=== PATIENT | female | born 1950 | race Hispanic/Latino ===

== ENCOUNTER 2018-06-18 11:23 | Emergency (ER) | payer MEDICARE, OTHER ==
[2018-06-18 11:23] VITALS: BMI 24.2
--- NOTE | 2018-06-18 12:22 | C.PDOC ---
History Of Present Illness 67 y/o female, with history of high cholesterol, comes in complaining of cough for the past 3 weeks. Patient reports taking medications but with no relief and has difficulty swallowing. Also complains of a headache and diarrhea but no vomiting, dizziness, chest pain, congestion, or other symptoms. Time Seen by Provider: 06/18/18 11:48 Chief Complaint (Nursing): Chest Pain History Per: Patient History/Exam Limitations: no limitations Onset/Duration Of Symptoms: Days Current Symptoms Are (Timing): Still Present Past Medical History Reviewed: Historical Data, Nursing Documentation, Vital Signs Vital Signs: Last Vital Signs Temp 98.9 F 06/18/18 11:30 Pulse 95 H 06/18/18 11:30 Resp 20 06/18/18 11:30 BP 136/84 06/18/18 11:30 Pulse Ox 99 06/18/18 11:30 - Medical History PMH: Anxiety, Back Problems, Depression, Gastritis, Hypercholesterolemia Denies: Diabetes, Hepatitis, HIV, HTN, Seizures, Sexually Transmitted Disease Surgical History: Cholecystectomy - [facility] GROUP PSYCHOTHERAPY (01/14/16) Family History: States: No Known Family Hx - Social History Hx Alcohol Use: No Hx Substance Use: Yes - Immunization History Hx Tetanus Toxoid Vaccination: No Hx Influenza Vaccination: No Hx Pneumococcal Vaccination: No Review Of Systems Except As Marked, All Systems Reviewed And Found Negative. Constitutional: Negative for: Fever, Chills ENT: Negative for: Nose Congestion Cardiovascular: Negative for: Chest Pain Respiratory: Positive for: Cough. Negative for: Shortness of Breath Gastrointestinal: Positive for: Diarrhea. Negative for: Vomiting Neurological: Positive for: Headache. Negative for: Dizziness Physical Exam - Physical Exam Appears: Non-toxic, No Acute Distress Skin: Warm, Dry Head: Atraumatic, Normacephalic Eye(s): bilateral: Normal Inspection Ear(s): Bilateral: Normal Oral Mucosa: Moist Throat: Normal, No Erythema, No Exudate Neck: Supple Cardiovascular: Rhythm Regular, No Murmur Respiratory: Normal Breath Sounds, No Rales, No Rhonchi, No Wheezing Gastrointestinal/Abdominal: Soft, No Tenderness Extremity: Bilateral: Atraumatic, Normal Color And Temperature, Normal ROM Neurological/Psych: Oriented x3, Normal Speech ED Course And Treatment - Laboratory Results Result Diagrams: 06/18/18 13:15 06/18/18 13:15 O2 Sat by Pulse Oximetry: 99 (RA) Pulse Ox Interpretation: Normal Medical Decision Making Medical Decision Making: Plan: --Labs --Chest XR --Flu swab --UA Disposition - Disposition Referrals: Shaik Gupta MD [Staff Provider] - Disposition: HOME/ ROUTINE Disposition Time: 14:30 Condition: STABLE Additional Instructions: Follow up with the medical doctor within 1-2 days. Return if worsened. Prescriptions: Azithromycin [Zithromax] 250 mg PO DAILY #4 tab Benzonatate 200 mg PO TID PRN #30 capsule PRN Reason: Cough predniSONE [Prednisone] 20 mg PO BID #10 tab Instructions: Acute Bronchitis Forms: [employer] ([place]) - Clinical Impression Clinical Impression: Bronchitis - PA / BUSINESS DEVELOPMENT PROFESSIONAL / Resident Statement MD/DO has reviewed & agrees with the documentation as recorded. - Scribe Statement The provider has reviewed the documentation as recorded by the Scribe Juliann Wisdom All medical record entries made by the Scribe were at my direction and perso mendoza dictated by me. I have reviewed the chart and agree that the record accurately reflects my personal performance of the history, physical exam, medical decision making, and the department course for this patient. I have also personally directed, reviewed, and agree with the discharge instructions and disposition.
--- NOTE | 2018-06-18 12:24 | C.PDOC ---
Time Seen by Provider: 06/18/18 11:48 Chief Complaint (Nursing): Chest Pain Past Medical History Vital Signs: Last Vital Signs Temp 98.9 F 06/18/18 11:30 Pulse 95 H 06/18/18 11:30 Resp 20 06/18/18 11:30 BP 136/84 06/18/18 11:30 Pulse Ox 99 06/18/18 11:30 - Medical History PMH: Anxiety, Back Problems, Depression, Gastritis, Hypercholesterolemia Denies: Diabetes, Hepatitis, HIV, HTN, Seizures, Sexually Transmitted Disease Surgical History: Cholecystectomy - [facility] Procedures GROUP PSYCHOTHERAPY (01/14/16) Family History: States: Unknown Family Hx - Social History Hx Alcohol Use: No Hx Substance Use: Yes - Immunization History Hx Tetanus Toxoid Vaccination: No Hx Influenza Vaccination: No Hx Pneumococcal Vaccination: No ED Course And Treatment O2 Sat by Pulse Oximetry: 99 Disposition - Disposition
[2018-06-18 13:25] LABS: BASO % 0.7 % (0.0-2.0); EOS # 0.2 K/uL (0.0-0.7); HEMOGLOBIN 12.7 g/dL (11.0-16.0); LYMPH % 16.7 % (20.0-40.0); MEAN CORPUSCULAR HEMOGLOBIN 32.5 pg (27.0-31.0); MEAN CORPUSCULAR HGB CONC 33.8 g/dL (33.0-37.0); MEAN PLATELET VOLUME 7.8 fL (7.2-11.7); MONO # 0.6 K/uL (0.0-0.8); MONO % 9.1 % (0.0-10.0); NEUT # 4.2 K/uL (1.8-7.0); NEUT % 69.5 % (50.0-75.0); RBC 3.91 Mil/uL (3.80-5.20); RED CELL DISTRIBUTION WIDTH 14.1 % (11.5-14.5); WHITE BLOOD COUNT 6.1 K/uL (4.8-10.8)
[2018-06-18 13:51] LABS: ALBUMIN 4.3 g/dL (3.5-5.0); ALT/SGPT 22 U/L (9-52); AST/SGOT 23 U/L (14-36); BLOOD UREA NITROGEN 5 mg/dL (7-17); CALCIUM 9.6 mg/dl (8.6-10.4); GFR NON-AFRICAN AMERICAN > 60
[2018-06-18 13:57] VITALS: RESP 18
--- NOTE | 2018-06-18 14:13 | RAD ---
Date of service: 06/18/2018 HISTORY: SOB COMPARISON: 08/26/2015 TECHNIQUE: Chest PA and lateral FINDINGS: LUNGS: No consolidation noted. Lung volumes slightly increased. A vague 6 to 7 mm low-density nodular opacity is question in the right upper lobe projecting also over the anterior right 2nd rib. This is not seen as such on the prior study. There is also equivocal faint low-density nodular opacity projecting over the medial inferior right clavicle not appreciated such on the prior study. Significance of these findings/appearances is unknown. No less pulmonary neoplastic nodules are the clinical entities to consider Punctate possible 1 to 2 mm scattered calcified granulomas on the lateral view are suspect. PLEURA: No significant pleural effusion identified. No pneumothorax apparent. A minimal biapical pleural thickening possible. CARDIOVASCULAR: No aortic atherosclerotic calcification present. Normal cardiac size. No pulmonary vascular congestion. OSSEOUS STRUCTURES: No significant abnormalities. VISUALIZED UPPER ABDOMEN: Normal. OTHER FINDINGS: None. IMPRESSION: Equivocal low-density nodular opacities right upper lung zone also projecting over the right anterior 2nd rib of unclear clinical significance. Additional findings as noted above. As these findings appearances are not seen with certainty on the available prior study, consider noncontrast CT chest to further evaluate. No pulmonary infiltrate or atelectasis, pleural effusion or pneumothorax seen. Other findings as above. Comments: Study marked for PA review .
[2018-06-18 14:53] VITALS: BP 151/78; PULSE 62; TEMP 98.8; O2SAT 98
--- NOTE | 2018-06-19 19:15 | CARD ---
APPROVED REPORT Date of service: 06/18/2018 EKG Measurement Heart [id number] <Conclusion> Normal sinus rhythm Normal ECG
== END 2018-06-18 14:52 | disposition home or self-care (01) ==
LOC: C.ER 11:23
DX: J40 Bronchitis, not specified as acute or chronic (principal); E78.00 Pure hypercholesterolemia, unspecified

== ENCOUNTER 2018-06-25 11:45 | Inpatient (IN) | payer MEDICARE, OTHER ==
[2018-06-25 11:45] VITALS: BMI 24.2
--- NOTE | 2018-06-25 13:00 | C.PDOC ---
History Of Present Illness 67 y/o female with a PMHx of asthma and anxiety presents to the ED for complaints of worsening SOB and cough for the past 2 weeks. She was seen here on 06/18 and diagnosed with bronchitis, discharged home with Zithromax, cough medicine, and prednisone. States she took medications but has not felt better at all. Patient then went to see her PMD who prescribed Avelox. She is still taking the Avelox but reports every day she feels worse than the day before. On arrival, patient appears to be hyperventilating. She denies any chest pain, nausea, vomiting, weakness, numbness, or leg pain or swelling. Time Seen by Provider: 06/25/18 12:33 Chief Complaint (Nursing): Shortness Of Breath History Per: Patient History/Exam Limitations: no limitations Onset/Duration Of Symptoms: Days Current Symptoms Are (Timing): Worse Initiating Event: Upper Respiratory Illness Exacerbating Factor(s): Coughing Past Medical History Reviewed: Historical Data, Nursing Documentation, Vital Signs Vital Signs: Last Vital Signs Temp 98.2 F 06/25/18 11:49 Pulse 92 H 06/25/18 11:49 Resp 20 06/25/18 11:49 BP 170/91 H 06/25/18 11:49 Pulse Ox 99 06/25/18 11:49 - Medical History PMH: Anxiety, Back Problems, Depression, Gastritis, Hypercholesterolemia Denies: Diabetes, Hepatitis, HIV, HTN, Seizures, Sexually Transmitted Disease Surgical History: Cholecystectomy - [facility] Procedures GROUP PSYCHOTHERAPY (01/14/16) Family History: States: No Known Family Hx - Social History Hx Alcohol Use: No Hx Substance Use: Yes - Immunization History Hx Tetanus Toxoid Vaccination: No Hx Influenza Vaccination: No Hx Pneumococcal Vaccination: No Review Of Systems Except As Marked, All Systems Reviewed And Found Negative. Constitutional: Negative for: Fever, Chills Eyes: Negative for: Vision Change Cardiovascular: Negative for: Chest Pain, Palpitations Respiratory: Positive for: Cough, Shortness of Breath Gastrointestinal: Negative for: Nausea, Vomiting, Diarrhea Musculoskeletal: Negative for: Back Pain Neurological: Negative for: Weakness, Numbness, Dizziness Psych: Positive for: Anxiety Physical Exam - Physical Exam Appears: Non-toxic, No Acute Distress, Other (Appears very anxious) Skin: Warm, Dry Head: Atraumatic, Normacephalic Eye(s): bilateral: Normal Inspection, PERRL, EOMI Oral Mucosa: Moist Neck: Normal ROM Chest: Symmetrical, No Tenderness Cardiovascular: Rhythm Regular, No Murmur Respiratory: No Rales, No Rhonchi, No Wheezing, Other (Hyperventilating) Gastrointestinal/Abdominal: Soft, No Tenderness, No Distention Extremity: Bilateral: Atraumatic, Normal Color And Temperature (with no cyanosis or edema), Normal ROM Pulses: Left Dorsalis Pedis: Normal, Right Dorsalis Pedis: Normal Neurological/Psych: Oriented x3 ED Course And Treatment - Laboratory Results Result Diagrams: 06/25/18 13:47 06/25/18 13:47 ECG: Interpreted By Me, Viewed By Me ECG Rhythm: Sinus Bradycardia Rate From EC O2 Sat by Pulse Oximetry: 99 (RA) Pulse Ox Interpretation: Normal - CT Scan/US CTA Chest Other Rad Studies (CT/US): Read By Radiologist, Radiology Report Reviewed CT/US Interpretation: Accession No. : [id number]. Patient Name / ID : JOE DOS SANTOS / [id number]. Exam Date : 06/25/2018 15:49:43 ( Approved ). Study Comment : Sex / Age : F / 67Y. Creator : Angela Ramos. Dictator : Keesha Salmon MD. Medical Device Sales : Real Time Analyst : Keesha Salmon MD. Approver2 : Report Date : 06/25/2018 16:11:44. My Comment : . Date of service: 06/25/2018. CTA chest PE protocol. Indication: SOB, abnormal CXR. Technique: Contiguous axial images were obtained through the chest with intravenous contrast enhancement. Sagittal and coronal reconstructions were generated and reviewed. This CT exam was performed using 1 or more of the following dose reduction techniques: Automated exposure control, adjustment of the MAA and/or kV according to patient size, and/or use of iterative reconstruction technique. IV contrast: 100 mL Visipaque 320 IV. . Radiation dose (DLP): 427.11 MGy-cm. Comparison: Chest x-ray performed 06/18/18. Findings: Visualized portions of the inferior thyroid gland appear unremarkable. The mediastinal and hilar vascular structures appear within normal limits. The heart appears within normal limits of size. Atherosclerotic calcifications. No large central or segmental pulmonary embolus evident. No focal consolidation. No pleural effusion. No pneumothorax. No suspicious pulmonary nodules measuring greater than 5 mm. Small hiatal hernia. Limited visualized portions of the upper abdomen: Cholecystectomy clips. Degenerative changes. Osseous demineralization. Impression: No large central or segmental pulmonary embolus identified. Progress Note: Blood work and urine sent to the lab. EKG ordered. Prior records and imaging reviewed. Prior CXR did show a possible lung mass. Will order CTA Chest to r/o malignancy vs PE. Imaging reviewed, no PE or infiltrates. No suspicious pulmonary nodules measuring greater than 5 mm. Counseled patient regarding all results. 17:20 Still pending EKG. EKG reviewed, no acute changes. 18:00 On reassessment, patient is refusing to go home, stating "I know something is wrong with me, I'm dying." She complains of persistent SOB and difficulty breathing. Will administer duoneb x 1 and reassess. - Physician Consult Information Time Consulting Physician Contacted: 18:27 Physician Contacted: Geoff Reyes Outcome Of Conversation: accepts patient for observation to tele Disposition Counseled Patient/Family Regarding: Studies Performed - Disposition Disposition: HOSPITALIZED Disposition Time: 18:27 Condition: FAIR Forms: [facility] ([place]) - Clinical Impression Clinical Impression: Dyspnea - PA / RADIO TELEVISION ANNOUNCER / Resident Statement MD/DO has reviewed & agrees with the documentation as recorded. - Scribe Statement The provider has reviewed the documentation as recorded by the Amee Evans All medical record entries made by the Amee were at my direction and personally dictated by me. I have reviewed the chart and agree that the record accurately reflects my personal performance of the history, physical exam, medical decision making, and the department course for this patient. I have also personally directed, reviewed, and agree with the discharge instructions and disposition. Decision To Admit - Pt Status Changed To: Hospital Disposition Of: Observation - . Bed Request Type: Telemetry Admitting Physician: Geoff Reyes Patient Diagnosis: Dyspnea
[2018-06-25 13:57] LABS: BASO % 0.1 % (0.0-2.0); EOS % 0.1 % (0.0-4.0); HEMOGLOBIN 13.9 g/dL (11.0-16.0); MEAN CELL VOLUME 95.6 fL (81.0-99.0); MEAN CORPUSCULAR HEMOGLOBIN 31.3 pg (27.0-31.0); MEAN CORPUSCULAR HGB CONC 32.7 g/dL (33.0-37.0); MEAN PLATELET VOLUME 7.8 fL (7.2-11.7); MONO # 0.8 K/uL (0.0-0.8); MONO % 6.2 % (0.0-10.0); NEUT # 11.1 K/uL (1.8-7.0); NEUT % 85.6 % (50.0-75.0); RBC 4.44 Mil/uL (3.80-5.20); RED CELL DISTRIBUTION WIDTH 14.1 % (11.5-14.5)
[2018-06-25 14:02] LABS: URINE BACTERIA RARE (<OCC); URINE BILIRUBIN NEGATIVE (NEGATIVE); URINE BLOOD NEGATIVE (NEGATIVE); URINE CLARITY Clear (Clear); URINE COLOR Straw (YELLOW); URINE GLUCOSE (UA) NORMAL (Normal); URINE LEUKOCYTE ESTERASE NEG Leu/uL (Negative); URINE PROTEIN NEGATIVE (NEGATIVE); URINE UROBILINOGEN NORMAL mg/dL (0.2-1.0)
[2018-06-25 14:06] LABS: PLATELET COUNT 340 K/uL (130-400)
[2018-06-25 14:07] LABS: ALB/GLOB RATIO 1.7 (1.0-2.1); ALBUMIN 4.7 g/dL (3.5-5.0); ALT/SGPT 40 U/L (9-52); AST/SGOT 40 U/L (14-36); BLOOD UREA NITROGEN 15 mg/dL (7-17); CALCIUM 10.2 mg/dl (8.6-10.4); GFR NON-AFRICAN AMERICAN > 60
[2018-06-25 14:08] LABS: PROTHROMBIN TIME 11.2 SECONDS (9.7-12.2)
[2018-06-25 14:17] LABS: B-TYPE NATRIURETIC PEPTIDE 133 pg/mL (0-900); CK-MB 1.76 ng/mL (0.0-3.38)
[2018-06-25 15:18] LABS: BANDS 1 % (0-2); LYMPHOCYTE 9 % (20-40); MONOCYTE 3 % (0-10); NEUTROPHIL 87 % (50-75); PLATELET ESTIMATE NORMAL (NORMAL); TOTAL CELLS COUNTED 100
[2018-06-25] MEDS ORDERED: Iodixanol 320 MG/ML 100 ML BOTTLE IV ONE ×2 (15:26→15:59)
--- NOTE | 2018-06-25 16:46 | CT ---
Date of service: 06/25/2018 CTA chest PE protocol Indication: SOB, abnormal CXR Technique: Contiguous axial images were obtained through the chest with intravenous contrast enhancement. Sagittal and coronal reconstructions were generated and reviewed. This CT exam was performed using 1 or more of the following dose reduction techniques: Automated exposure control, adjustment of the MAA and/or kV according to patient size, and/or use of iterative reconstruction technique. IV contrast: 100 mL Visipaque 320 IV Radiation dose (DLP): 427.11 MGy-cm. Comparison: Chest x-ray performed 06/18/18 Findings: Visualized portions of the inferior thyroid gland appear unremarkable. The mediastinal and hilar vascular structures appear within normal limits. The heart appears within normal limits of size. Atherosclerotic calcifications. No large central or segmental pulmonary embolus evident. No focal consolidation. No pleural effusion. No pneumothorax. No suspicious pulmonary nodules measuring greater than 5 mm. Small hiatal hernia. Limited visualized portions of the upper abdomen: Cholecystectomy clips. Degenerative changes. Osseous demineralization. Impression: No large central or segmental pulmonary embolus identified.
[2018-06-25] MEDS ORDERED: Albuterol-Ipratrop 3 mg / 0.5 (3 ml) UD IH STA (18:17)
[2018-06-25] MEDS ORDERED: Albuterol-Ipratrop 3 mg / 0.5 (3 ml) UD ONE (18:26)
[2018-06-25] MEDS ORDERED: Albuterol-Ipratrop 3 mg / 0.5 (3 ml) UD INH PRN (21:07)
[2018-06-25] MEDS: MethylPREDNISolone 40 mg Vial IVP SCH (21:27)
[2018-06-25] MEDS: Azithromycin 500 MG in Sodium Chloride 0.9% 250 ML IVPB SCH (21:33)
[2018-06-25] MEDS: Tramadol 25 mg PO PRN (22:16)
[2018-06-26] MEDS: MethylPREDNISolone 40 mg Vial IVP SCH ×3 (05:46→22:09)
[2018-06-26] MEDS: Pantoprazole 20 mg EC Tab PO SCH (09:11)
[2018-06-26] MEDS: Enoxaparin 40 mg Syringe SC SCH (09:11)
[2018-06-26] MEDS: Azithromycin 500 MG in Sodium Chloride 0.9% 250 ML IVPB SCH (09:20)
[2018-06-26] MEDS: Tramadol 25 mg PO PRN (10:21)
--- NOTE | 2018-06-26 11:04 | CP.PCM.CON ---
History of Present Illness - History of Present Illness History of Present Illness: Reason for consultation: Shortness of breath 67-year-old female with history of asthma, anxiety/depression presented to emergency room with worsening shortness of breath and cough for the past 2 weeks. She was recently admitted and treated for bronchitis and was discharged home on prednisone and Zithromax which she took it but did not get better. CT angios showed no pulmonary embolism, pneumonia or lung nodule. Patient also complaining of diarrhea after she was started on antibiotics. Review of Systems - Review of Systems All systems: reviewed and no additional remarkable complaints except (Shortness of breath cough and diarrhea) Past Patient History - Infectious Disease Hx of Infectious Diseases: None - Past Medical History & Family History Past Medical History?: Yes - Past Social History Smoking Status: Light Smoker < 10 Cigarettes Daily - CARDIAC Hx Hypercholesterolemia: Yes Hx Hypertension: No - PULMONARY Hx Tuberculosis: No - NEUROLOGICAL Hx Seizures: No - HEMATOLOGICAL/ONCOLOGICAL Hx Human Immunodeficiency Virus (HIV): No - MUSCULOSKELETAL/RHEUMATOLOGICAL Hx Musculoskeletal Disorders: Yes - GASTROINTESTINAL Hx Gastritis: Yes - GENITOURINARY/GYNECOLOGICAL Hx Sexually Transmitted Disorders: No - PSYCHIATRIC Hx Anxiety: Yes Hx Depression: Yes Hx Substance Use: Yes - SURGICAL HISTORY Hx Cholecystectomy: Yes - ANESTHESIA Hx Anesthesia: Yes Hx Anesthesia Reactions: No Meds Allergies/Adverse Reactions: Allergies Allergy/AdvReac Type Severity Reaction Status Date / Time No Known Allergies Allergy Verified 06/25/18 11:50 - Medications Medications: Current Medications Albuterol/Ipratropium (Duoneb 3 Mg/0.5 Mg (3 Ml) Ud) 3 ml INH RQ6 PRN PRN Reason: dyspnea Clonazepam (Klonopin) 0.5 mg PO [facility] Cyanocobalamin (Vitamin B12 1000 Mcg Tab) 1,000 mcg PO DAILY [facility] Last Admin: 06/26/18 09:03 Dose: 1,000 mcg Enoxaparin Sodium (Lovenox) 40 mg SC DAILY [facility] Last Admin: 06/26/18 09:11 Dose: 40 mg Escitalopram Oxalate (Lexapro) 20 mg PO DAILY [facility] Last Admin: 06/26/18 09:03 Dose: 20 mg Ceftriaxone Sodium 1 gm/ (Sodium Chloride) 100 mls @ 100 mls/hr IVPB DAILY [facility]; Protocol Last Admin: 06/26/18 09:13 Dose: 100 mls/hr Azithromycin 500 mg/ Sodium (Chloride) 250 mls @ 250 mls/hr IVPB DAILY [facility]; Protocol Last Admin: 06/26/18 09:20 Dose: 250 mls/hr Methylprednisolone (Solu-Medrol) 40 mg IVP Q8 [facility] Last Admin: 06/26/18 05:46 Dose: 40 mg Montelukast Sodium (Singulair) 10 mg PO HS [facility] Last Admin: 06/25/18 21:26 Dose: 10 mg Pantoprazole Sodium (Protonix Ec Tab) 20 mg PO DAILY [facility] Last Admin: 06/26/18 09:11 Dose: 20 mg Pneumococcal Polyvalent Vaccine (Pneumovax 23 Vaccine) 0.5 ml IM .ONCE ONE Stop: 06/27/18 12:01 Quetiapine Fumarate (Seroquel) 50 mg PO [facility] Last Admin: 06/25/18 21:27 Dose: 50 mg Tramadol HCl (Ultram) 25 mg PO Q6 PRN PRN Reason: pain Last Admin: 06/26/18 10:21 Dose: 25 mg Physical Exam - Head Exam Head Exam: ATRAUMATIC, NORMOCEPHALIC - ENT Exam ENT Exam: Mucous Membranes Moist - Neck Exam Neck exam: Positive for: Normal Inspection - Respiratory Exam Respiratory Exam: Clear to Auscultation Bilateral - Cardiovascular Exam Cardiovascular Exam: REGULAR RHYTHM - GI/Abdominal Exam GI & Abdominal Exam: Normal Bowel Sounds Results - Vital Signs Recent Vital Signs: Last Vital Signs Temp 98.8 F 06/26/18 07:00 Pulse 48 L 06/26/18 07:10 Resp 20 06/26/18 07:00 BP 160/80 H 06/26/18 07:00 Pulse Ox 98 06/26/18 07:10 - Labs Result Diagrams: 06/25/18 13:47 06/25/18 13:47 Labs: Laboratory Results - last 24 hr 06/25/18 06/25/18 06/25/18 13:47 13:47 13:47 WBC 13.0 H D RBC 4.44 Hgb 13.9 Hct 42.4 MCV 95.6 MCH 31.3 H MCHC 32.7 L RDW 14.1 Plt Count 340 D MPV 7.8 Neut % (Auto) 85.6 H Lymph % (Auto) 8.0 L [place] % (Auto) 6.2 Eos % (Auto) 0.1 Baso % (Auto) 0.1 Neut # (Auto) 11.1 H Lymph # (Auto) 1.0 [place] # (Auto) 0.8 Eos # (Auto) 0.0 Baso # (Auto) 0.0 Neutrophils % (Manual) 87 H Band Neutrophils % 1 Lymphocytes % (Manual) 9 L Monocytes % (Manual) 3 Platelet Estimate Normal RBC Morphology Normal PT 11.2 INR 1.0 APTT 24 Sodium Potassium Chloride Carbon Dioxide Anion Gap BUN Creatinine Est GFR ( Amer) Est GFR (Non-Af Amer) Random Glucose Calcium Total Bilirubin AST ALT Alkaline Phosphatase Total Creatine Kinase CK-MB (Mass) Troponin I NT-Pro-B Natriuret Pep Total Protein Albumin Globulin Albumin/Globulin Ratio Urine Color Straw Urine Clarity Clear Urine pH 8.0 Ur Specific [place] 1.004 Urine Protein Negative Urine Glucose (UA) Normal Urine Ketones Negative Urine Blood Negative Urine Nitrate Negative Urine Bilirubin Negative Urine Urobilinogen Normal Ur Leukocyte Esterase Neg Urine WBC (Auto) < 1 Urine RBC (Auto) < 1 Urine Bacteria Rare 06/25/18 13:47 WBC RBC Hgb Hct MCV MCH MCHC RDW Plt Count MPV Neut % (Auto) Lymph % (Auto) [place] % (Auto) Eos % (Auto) Baso % (Auto) Neut # (Auto) Lymph # (Auto) [place] # (Auto) Eos # (Auto) Baso # (Auto) Neutrophils % (Manual) Band Neutrophils % Lymphocytes % (Manual) Monocytes % (Manual) Platelet Estimate RBC Morphology PT INR APTT Sodium 140 Potassium 3.9 Chloride 102 Carbon Dioxide 31 H Anion Gap 11 BUN 15 Creatinine 0.5 L Est GFR ( Amer) > 60 Est GFR (Non-Af Amer) > 60 Random Glucose 93 Calcium 10.2 Total Bilirubin 0.6 AST 40 H D ALT 40 Alkaline Phosphatase 64 Total Creatine Kinase 49 CK-MB (Mass) 1.76 Troponin I < 0.0120 NT-Pro-B Natriuret Pep 133 Total Protein 7.4 Albumin 4.7 Globulin 2.7 Albumin/Globulin Ratio 1.7 Urine Color Urine Clarity Urine pH Ur Specific [place] Urine Protein Urine Glucose (UA) Urine Ketones Urine Blood Urine Nitrate Urine Bilirubin Urine Urobilinogen Ur Leukocyte Esterase Urine WBC (Auto) Urine RBC (Auto) Urine Bacteria Assessment & Plan (1) Bronchitis Status: Acute Comment: No infiltrate or pulmonary embolism on CT angios. On IV antibiotics. Nebulizer treatment and steroids. On Seroquel and Klonopin. Psych evaluation (2) Anxiety Status: Acute
--- NOTE | 2018-06-26 12:01 | CP.PCM.CON ---
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 Broussard 67F presenting to [facility] ED w/ complaints of SOB x3 week; previously seen on 06/18 w/ similar complaint DC'd w/ zithromax and prednisone. EKG on admission was sinus roxanna @ 50/min no ST/T abnl; Prior EKG 06/18 - NSR 76, Hypotensive, Trops negative x1, CTAPE - negative for PE, BNP 133 Cardiology Consulted for evaluation of chest pain Patient reports she is complaining of mouth/neck pain with associated epigastric and bilateral lower rib pain. Patient describes no inciting event/ trauma which ocurred two weeks ago. Reports pain is a tight pressure like sensation w/ associated burning; no radiation in to the L arm. Reports pain and shortness of breath are worse w/ exertion. Upon ROS Patient is also complaining of [place], Dry mouth w/ malodour, cough, thirst, and sweating. Remainder of 12 system ROS is otherwise negative Social history: patient smokes 1/3ppd x45 years active; Patient also reports she used to work in a [employer] - did have respiratory issues during that time. FamHx: Denies hx of cardiomyopathy, DM, HLD in family PMH: Chart review reports asthma, patient denies hx asthma, anxiety/depression; Denies Denies cardiac Hx Review of Systems - Review of Systems All systems: reviewed and no additional remarkable complaints except Review of Systems: as per HPI Past Patient History - Infectious Disease Hx of Infectious Diseases: None - Past Medical History & Family History Past Medical History?: Yes - Past Social History Smoking Status: Light Smoker < 10 Cigarettes Daily - CARDIAC Hx Hypercholesterolemia: Yes Hx Hypertension: No - PULMONARY Hx Tuberculosis: No - NEUROLOGICAL Hx Seizures: No - HEMATOLOGICAL/ONCOLOGICAL Hx Human Immunodeficiency Virus (HIV): No - MUSCULOSKELETAL/RHEUMATOLOGICAL Hx Musculoskeletal Disorders: Yes - GASTROINTESTINAL Hx Gastritis: Yes - GENITOURINARY/GYNECOLOGICAL Hx Sexually Transmitted Disorders: No - PSYCHIATRIC Hx Anxiety: Yes Hx Depression: Yes Hx Substance Use: Yes - SURGICAL HISTORY Hx Cholecystectomy: Yes - ANESTHESIA Hx Anesthesia: Yes Hx Anesthesia Reactions: No Meds Allergies/Adverse Reactions: Allergies Allergy/AdvReac Type Severity Reaction Status Date / Time No Known Allergies Allergy Verified 06/25/18 11:50 - Medications Medications: Current Medications Albuterol/Ipratropium (Duoneb 3 Mg/0.5 Mg (3 Ml) Ud) 3 ml INH RQ6 PRN PRN Reason: dyspnea Clonazepam (Klonopin) 0.5 mg PO [facility] Cyanocobalamin (Vitamin B12 1000 Mcg Tab) 1,000 mcg PO DAILY [facility] Last Admin: 06/26/18 09:03 Dose: 1,000 mcg Enoxaparin Sodium (Lovenox) 40 mg SC DAILY [facility] Last Admin: 06/26/18 09:11 Dose: 40 mg Escitalopram Oxalate (Lexapro) 20 mg PO DAILY [facility] Last Admin: 06/26/18 09:03 Dose: 20 mg Ceftriaxone Sodium 1 gm/ (Sodium Chloride) 100 mls @ 100 mls/hr IVPB DAILY [facility]; Protocol Last Admin: 06/26/18 09:13 Dose: 100 mls/hr Azithromycin 500 mg/ Sodium (Chloride) 250 mls @ 250 mls/hr IVPB DAILY [facility]; Protocol Last Admin: 06/26/18 09:20 Dose: 250 mls/hr Methylprednisolone (Solu-Medrol) 40 mg IVP Q8 [facility] Last Admin: 06/26/18 05:46 Dose: 40 mg Montelukast Sodium (Singulair) 10 mg PO [facility] Last Admin: 06/25/18 21:26 Dose: 10 mg Pantoprazole Sodium (Protonix Ec Tab) 20 mg PO DAILY [facility] Last Admin: 06/26/18 09:11 Dose: 20 mg Pneumococcal Polyvalent Vaccine (Pneumovax 23 Vaccine) 0.5 ml IM .ONCE ONE Stop: 06/27/18 12:01 Quetiapine Fumarate (Seroquel) 50 mg PO [facility] Last Admin: 06/25/18 21:27 Dose: 50 mg Tramadol HCl (Ultram) 25 mg PO Q6 PRN PRN Reason: pain Last Admin: 06/26/18 10:21 Dose: 25 mg Physical Exam - Constitutional Appears: Well, Non-toxic, No Acute Distress - Head Exam Head Exam: ATRAUMATIC, NORMOCEPHALIC - Eye Exam Eye Exam: EOMI, PERRL - ENT Exam ENT Exam: Normal Exam Additional comments: No absess lesion noted in mouth No discharge noted Moist oral mucosa - Neck Exam Neck exam: Negative for: Lymphadenopathy, Tenderness - Respiratory Exam Respiratory Exam: Clear to Auscultation Bilateral, NORMAL BREATHING PATTERN. a bsent: Wheezes - Cardiovascular Exam Cardiovascular Exam: RRR, +S1, +S2. absent: Systolic Murmur Additional comments: Chest Exam: No lesion/ Skin changes noted on chest or abdomen - GI/Abdominal Exam GI & Abdominal Exam: Normal Bowel Sounds, Soft. absent: Tenderness - Extremities Exam Extremities exam: Positive for: normal capillary refill, normal inspection - Neurological Exam Neurological exam: Alert, Oriented x3 - Psychiatric Exam Psychiatric exam: Anxious - Skin Skin Exam: Dry, Intact, Warm Results - Vital Signs Recent Vital Signs: Last Vital Signs Temp 98.8 F 06/26/18 07:00 Pulse 48 L 06/26/18 07:10 Resp 20 06/26/18 07:00 BP 160/80 H 06/26/18 07:00 Pulse Ox 98 06/26/18 07:10 - Labs Result Diagrams: 06/25/18 13:47 06/25/18 13:47 Labs: Laboratory Results - last 24 hr 06/25/18 06/25/18 06/25/18 13:47 13:47 13:47 WBC 13.0 H D RBC 4.44 Hgb 13.9 Hct 42.4 MCV 95.6 MCH 31.3 H MCHC 32.7 L RDW 14.1 Plt Count 340 D MPV 7.8 Neut % (Auto) 85.6 H Lymph % (Auto) 8.0 L [place] % (Auto) 6.2 Eos % (Auto) 0.1 Baso % (Auto) 0.1 Neut # (Auto) 11.1 H Lymph # (Auto) 1.0 [place] # (Auto) 0.8 Eos # (Auto) 0.0 Baso # (Auto) 0.0 Neutrophils % (Manual) 87 H Band Neutrophils % 1 Lymphocytes % (Manual) 9 L Monocytes % (Manual) 3 Platelet Estimate Normal RBC Morphology Normal PT 11.2 INR 1.0 APTT 24 Sodium Potassium Chloride Carbon Dioxide Anion Gap BUN Creatinine Est GFR ( Amer) Est GFR (Non-Af Amer) Random Glucose Calcium Total Bilirubin AST ALT Alkaline Phosphatase Total Creatine Kinase CK-MB (Mass) Troponin I NT-Pro-B Natriuret Pep Total Protein Albumin Globulin Albumin/Globulin Ratio Urine Color Straw Urine Clarity Clear Urine pH 8.0 Ur Specific [place] 1.004 Urine Protein Negative Urine Glucose (UA) Normal Urine Ketones Negative Urine Blood Negative Urine Nitrate Negative Urine Bilirubin Negative Urine Urobilinogen Normal Ur Leukocyte Esterase Neg Urine WBC (Auto) < 1 Urine RBC (Auto) < 1 Urine Bacteria Rare 06/25/18 13:47 WBC RBC Hgb Hct MCV MCH MCHC RDW Plt Count MPV Neut % (Auto) Lymph % (Auto) [place] % (Auto) Eos % (Auto) Baso % (Auto) Neut # (Auto) Lymph # (Auto) [place] # (Auto) Eos # (Auto) Baso # (Auto) Neutrophils % (Manual) Band Neutrophils % Lymphocytes % (Manual) Monocytes % (Manual) Platelet Estimate RBC Morphology PT INR APTT Sodium 140 Potassium 3.9 Chloride 102 Carbon Dioxide 31 H Anion Gap 11 BUN 15 Creatinine 0.5 L Est GFR ( Amer) > 60 Est GFR (Non-Af Amer) > 60 Random Glucose 93 Calcium 10.2 Total Bilirubin 0.6 AST 40 H D ALT 40 Alkaline Phosphatase 64 Total Creatine Kinase 49 CK-MB (Mass) 1.76 Troponin I < 0.0120 NT-Pro-B Natriuret Pep 133 Total Protein 7.4 Albumin 4.7 Globulin 2.7 Albumin/Globulin Ratio 1.7 Urine Color Urine Clarity Urine pH Ur Specific [place] Urine Protein Urine Glucose (UA) Urine Ketones Urine Blood Urine Nitrate Urine Bilirubin Urine Urobilinogen Ur Leukocyte Esterase Urine WBC (Auto) Urine RBC (Auto) Urine Bacteria Assessment & Plan (1) Chest pain Assessment and Plan: Will get exercise stress test to evaluate for ischemia negative trop + negative EKG however social history is + for active smoker. CTA Chest negative for PE; Status: Acute Priority: High (2) Dyspnea Assessment and Plan: CTA Chest negative for PE Will evaluate for cardiac etiology Status: Acute Priority: High (3) Polydipsia Assessment and Plan: Glucose levels mostly normal; will follow up A1C; Consider psychogenic etiology Status: Acute Priority: Low
--- NOTE | 2018-06-26 14:29 | CP.PCM.CON ---
History of Present Illness - History of Present Illness History of Present Illness: 67-year-old female with history of asthma, anxiety/depression comes to ER with worsening shortness of breath and cough for the past 2 weeks. She was recently admitted and treated for bronchitis and was discharged home on prednisone and Zithromax but did not get better. ID consulted for this appears anxious and c/o throat / neck discomfort C Review of Systems - Review of Systems All systems: reviewed and no additional remarkable complaints except - Constitutional Constitutional: As Per HPI, Anorexia, Chills, Malaise - EENT Eyes: absent: As Per HPI, Blind Spots, Blurred Vision, Change in Vision, Decreased Night Vision, Diplopia, Discharge, Dry Eye, Exophthalmos, Floaters, Irritation, Itchy Eyes, Loss of Peripheral Vision, Pain, Photophobia, Requires Corrective Lenses, Sees Flashes, Spots in Vision, Tunnel Vision, Other Visual Disturbances, Loss of Vision, Other Ears: absent: As Per HPI, Decreased Hearing, Ear Discharge, Ear Pain, Tinnitus, Abnormal Hearing, Disequilibrium, Dizziness, Other Nose/Mouth/Throat: absent: As Per HPI, Epistaxis, Nasal Congestion, Nasal Discharge, Nasal Obstruction, Nasal Trauma, Nose Pain, Post Nasal Drip, Sinus Pain, Sinus Pressure, Bleeding Gums, Change in Voice, Dental Pain, Dry Mouth, Dy sphagia, Halitosis, Hoarsness, Lip Swelling, Mouth Lesions, Mouth Pain, Odynophagia, Sore Throat, Throat Swelling, Tongue Swelling, Facial Pain, Neck Pain, Neck Mass, Other - Breasts Breasts: absent: As Per HPI, Change in Shape, Mass, Pain, Nipple Discharge, Ni pple Inversion, Skin Changes, Swelling, Other - Cardiovascular Cardiovascular: absent: As Per HPI, Acrocyanosis, Chest Pain, Chest Pain at Rest, Chest Pain with Activity, Claudication, Diaphoresis, Dyspnea, Dyspnea on Exertion, Edema, Irregular Heart Rhythm, Pain Radiating to Arm/Neck/Jaw, Leg Edema, Leg Ulcers, Lightheadedness, Orthopnea, Palpitations, Paroxysmal Nocturnal Dyspnea, Pedal Edema, Radiating Pain, Rapid Heart Rate, Slow Heart Rate, Syncope, Other - Respiratory Respiratory: Cough, Dyspnea. absent: Hemoptysis - Gastrointestinal Gastrointestinal: absent: As Per HPI, Abdominal Pain, Belching, Bloating, Change in Bowel Habits, Change in Stool Character, Coffee Ground Emesis, Constipation, Cramping, Diarrhea, Dyspepsia, Dysphagia, Early Satiety, Excessive Flatus, Fecal Incontinence, Heartburn, Hematemesis, Hematochezia, Loose Stools, Melena, Nausea, Odynophagia, Temesmus, Vomiting, Other - Genitourinary Genitourinary: absent: As Per HPI, Change in Urinary Stream, Difficulty Urinating, Dysuria, Flank Pain, Hematuria, Pyuria, Nocturia, Urinary Incontinence, Urinary Frequency, Urinary Hesitance, Urinary Urgency, Voiding Freq/Small Amts, Freq UTI, Hx Renal/Bladder Calculi, Hx /Renal Surgery, Bladder Distension, Other - Reproductive: Female Reproductive:Female: absent: As Per HPI, Amenorrhea, Amenorrhea/ Control, Currently Menstual, Cycle <21 Days, Cycle >35 Days, Cycle Variable, Menses 1-7 Days, Menses >/= 8 Days, Menses Variable, Cycle > 4 Weeks Between, No Menses for 6 Months, Heavy Menses, Light Menses, Normal Menses, Spotting Between Cycles, S/P Hysterectomy, Menopausal, Post Menopausal, Premenarche, Abnormal Vaginal Bleeding, Dysmenorrhea, Dyspareunia, Genital Lesions, Genital Pruritis, Pelvic Pain, Prolapse Symptoms, Sexual Dysfunction, Vaginal Discharge, Vaginal Dryness, Vaginal Odor, Vaginal Pruritis, Other - Menstruation Menstruation: absent: As Per HPI, Amenorrhea, Amenorrhea/ Control, Currently Menstual, Cycle <21 Days, Cycle >35 Days, Cycle Variable, Menses 1-7 Days, Menses >/= 8 Days, Menses Variable, Cycle > 4 Weeks Between, No Menses for 6 Months, Heavy Menses, Light Menses, Normal Menses, Spotting Between Cycles, S/P Hysterectomy, Menopausal, Post Menopausal, Premenarche, Abnormal Vaginal Bleeding, Dysmenorrhea, Other - Musculoskeletal Musculoskeletal: absent: As Per HPI, Abnormal Gait, Arthralgias, Atrophy, Back Pain, Deformity, Joint Swelling, Limited Range of Motion, Loss of Height, Muscle Cramps, Muscle Weakness, Myalgias, Neck Pain, Numbness, Radiating Pain into Limb, Stiffness, Tingling, Other - Integumentary Integumentary: absent: As Per HPI, Acne, Alopecia, Bleeding Lesions, Change in Hair, Change in Nails, Change in Pigmentation, Changing Lesions, Dry Skin, Erythema, Furuncle, Hirsutism, Lesions, New Lesions, Non-Healing Lesions, Photosensitivity, Pruritus, Rash, Skin Pain, Skin Ulcer, Sores, Striae, Swelling, Unusual Bruising, Wounds, Jaundice, Other - Neurological Neurological: absent: As Per HPI, Abnormal Gait, Abnormal Hearing, Abnormal Movements, Abnormal Speech, Behavioral Changes, Burning Sensations, Confusion, Convulsions, Disequilibrium, Dizziness, Numbness, Focal Weakness, Frequent Falls, Headaches, Lack of Coordination, Loss of Vision, Memory Loss, Paresthesias, Radicular Pain, Restless Legs, Sensory Deficit, Syncope, Tingling, Tremor, Vertigo, Weakness, Other Visual Disturbances, Other - Psychiatric Psychiatric: As Per HPI - Endocrine Endocrine: absent: As Per HPI, Change in Body Appearance, Change in Libido, Cold Intolorance, Deepening of Voice, Excessive Sweating, Fatigue, Flushing, Heat Intolorance, Increase in Ring/Shoe/Hat Size, Palpitations, Polydipsia, Polyphagia, Polyuria, Other - Hematologic/Lymphatic Hematologic: absent: As Per HPI, Easy Bleeding, Easy Bruising, Lymphadenopathy, Other Past Patient History - Infectious Disease Hx of Infectious Diseases: None - Past Medical History & Family History Past Medical History?: Yes - Past Social History Smoking Status: Light Smoker < 10 Cigarettes Daily - CARDIAC Hx Hypercholesterolemia: Yes Hx Hypertension: No - PULMONARY Hx Tuberculosis: No - NEUROLOGICAL Hx Seizures: No - HEMATOLOGICAL/ONCOLOGICAL Hx Human Immunodeficiency Virus (HIV): No - MUSCULOSKELETAL/RHEUMATOLOGICAL Hx Musculoskeletal Disorders: Yes - GASTROINTESTINAL Hx Gastritis: Yes - GENITOURINARY/GYNECOLOGICAL Hx Sexually Transmitted Disorders: No - PSYCHIATRIC Hx Anxiety: Yes Hx Depression: Yes Hx Substance Use: Yes - SURGICAL HISTORY Hx Cholecystectomy: Yes - ANESTHESIA Hx Anesthesia: Yes Hx Anesthesia Reactions: No Meds Allergies/Adverse Reactions: Allergies Allergy/AdvReac Type Severity Reaction Status Date / Time No Known Allergies Allergy Verified 06/25/18 11:50 - Medications Medications: Current Medications Albuterol/Ipratropium (Duoneb 3 Mg/0.5 Mg (3 Ml) Ud) 3 ml INH RQ6 PRN PRN Reason: dyspnea Clonazepam (Klonopin) 0.5 mg PO HS [facility] Cyanocobalamin (Vitamin B12 1000 Mcg Tab) 1,000 mcg PO DAILY [facility] Last Admin: 06/26/18 09:03 Dose: 1,000 mcg Enoxaparin Sodium (Lovenox) 40 mg SC DAILY [facility] Last Admin: 06/26/18 09:11 Dose: 40 mg Escitalopram Oxalate (Lexapro) 20 mg PO DAILY [facility] Last Admin: 06/26/18 09:03 Dose: 20 mg Ceftriaxone Sodium 1 gm/ (Sodium Chloride) 100 mls @ 100 mls/hr IVPB DAILY [facility]; Protocol Last Admin: 06/26/18 09:13 Dose: 100 mls/hr Azithromycin 500 mg/ Sodium (Chloride) 250 mls @ 250 mls/hr IVPB DAILY [facility]; Protocol Last Admin: 06/26/18 09:20 Dose: 250 mls/hr Influenza Virus Vaccine (Flucelvax Quad [id number] Syr) 60 mcg IM .ONCE ONE Stop: 06/27/18 12:01 Methylprednisolone (Solu-Medrol) 40 mg IVP Q8 [facility] Last Admin: 06/26/18 05:46 Dose: 40 mg Montelukast Sodium (Singulair) 10 mg PO [facility] Last Admin: 06/25/18 21:26 Dose: 10 mg Pantoprazole Sodium (Protonix Ec Tab) 20 mg PO DAILY [facility] Last Admin: 06/26/18 09:11 Dose: 20 mg Pneumococcal Polyvalent Vaccine (Pneumovax 23 Vaccine) 0.5 ml IM .ONCE ONE Stop: 06/27/18 12:01 Quetiapine Fumarate (Seroquel) 50 mg PO [facility] Last Admin: 06/25/18 21:27 Dose: 50 mg Tramadol HCl (Ultram) 25 mg PO Q6 PRN PRN Reason: pain Last Admin: 06/26/18 10:21 Dose: 25 mg Physical Exam - Constitutional Appears: Non-toxic, No Acute Distress, Cachectic, Chronically Ill - Head Exam Head Exam: ATRAUMATIC, NORMAL INSPECTION, NORMOCEPHALIC - Eye Exam Eye Exam: PERRL. absent: Scleral icterus - ENT Exam ENT Exam: Mucous Membranes Dry, Normal External Ear Exam, Normal Oropharynx - Neck Exam Neck exam: Negative for: Lymphadenopathy, Thyromegaly - Respiratory Exam Respiratory Exam: Decreased Breath Sounds, Prolonged Expiratory Phase - Cardiovascular Exam Cardiovascular Exam: REGULAR RHYTHM, +S1, +S2 - GI/Abdominal Exam GI & Abdominal Exam: Diminished Bowel Sounds, Soft. absent: Tenderness - Rectal Exam Rectal Exam: Deferred - Exam Exam: NORMAL INSPECTION - Extremities Exam Extremities exam: Positive for: full ROM, pedal pulses present. Negative for: calf tenderness, pedal edema, tenderness - Back Exam Back exam: absent: CVA tenderness (L), CVA tenderness (R), paraspinal tenderness - Neurological Exam Neurological exam: Alert, CN II-XII Intact, Oriented x3, Reflexes Normal - Psychiatric Exam Psychiatric exam: Anxious, Depressed - Skin Skin Exam: Dry Results - Vital Signs Recent Vital Signs: Last Vital Signs Temp 98.8 F 06/26/18 07:00 Pulse 48 L 06/26/18 07:10 Resp 20 06/26/18 07:00 BP 160/80 H 06/26/18 07:00 Pulse Ox 98 06/26/18 07:10 - Labs Result Diagrams: 06/25/18 13:47 06/25/18 13:47 Labs: Laboratory Results - last 24 hr 06/25/18 13:47 Neutrophils % (Manual) 87 H Band Neutrophils % 1 Lymphocytes % (Manual) 9 L Monocytes % (Manual) 3 Platelet Estimate Normal RBC Morphology Normal Assessment & Plan (1) Dyspnea Status: Acute Priority: High (2) Anxiety Status: Acute (3) Bronchitis Status: Acute - Assessment and Plan (Free Text) Assessment: recc ENT eval for throat and neck pain consider CT soft tissues neck cont rx COPD/asthma very anxious may need psych
--- NOTE | 2018-06-26 17:34 | CARD ---
APPROVED REPORT Date of service: 06/25/2018 EKG Measurement Heart [id number] <Conclusion> Sinus bradycardia Otherwise normal ECG
--- NOTE | 2018-06-26 19:34 | CP.PCM.HP ---
Past Patient History - Infectious Disease Hx of Infectious Diseases: None - Past Medical History & Family History Past Medical History?: Yes - Past Social History Smoking Status: Light Smoker < 10 Cigarettes Daily - CARDIAC Hx Hypercholesterolemia: Yes - PULMONARY Hx Tuberculosis: No - NEUROLOGICAL Hx Seizures: No - HEMATOLOGICAL/ONCOLOGICAL Hx Human Immunodeficiency Virus (HIV): No - MUSCULOSKELETAL/RHEUMATOLOGICAL Hx Musculoskeletal Disorders: Yes - GASTROINTESTINAL Hx Gastritis: Yes - GENITOURINARY/GYNECOLOGICAL Hx Sexually Transmitted Disorders: No - PSYCHIATRIC Hx Anxiety: Yes Hx Depression: Yes Hx Substance Use: Yes - SURGICAL HISTORY Hx Cholecystectomy: Yes - ANESTHESIA Hx Anesthesia: Yes Hx Anesthesia Reactions: No Meds Allergies/Adverse Reactions: Allergies Allergy/AdvReac Type Severity Reaction Status Date / Time No Known Allergies Allergy Verified 06/25/18 11:50 Physical Exam - Constitutional Appears: Well - Head Exam Head Exam: ATRAUMATIC, NORMAL INSPECTION, NORMOCEPHALIC - Eye Exam Eye Exam: EOMI, Normal appearance, PERRL Pupil Exam: NORMAL ACCOMODATION, PERRL - ENT Exam ENT Exam: Mucous Membranes Moist, Normal Exam - Neck Exam Neck exam: Positive for: Normal Inspection - Respiratory Exam Respiratory Exam: Decreased Breath Sounds - Cardiovascular Exam Cardiovascular Exam: REGULAR RHYTHM, +S1, +S2 - GI/Abdominal Exam GI & Abdominal Exam: Diminished Bowel Sounds, Soft - Rectal Exam Rectal Exam: Deferred Results - Vital Signs Recent Vital Signs: Last Vital Signs Temp 98.4 F 06/26/18 15:00 Pulse 65 06/26/18 16:00 Resp 20 06/26/18 15:00 BP 99/56 L 06/26/18 15:00 Pulse Ox 98 06/26/18 16:00 - Labs Result Diagrams: 06/25/18 13:47 06/25/18 13:47
[2018-06-27] MEDS: MethylPREDNISolone 40 mg Vial IVP SCH ×3 (05:06→21:16)
[2018-06-27 08:52] LABS: T3 0.959 nmol/L (1.49-2.60)
[2018-06-27] MEDS: Enoxaparin 40 mg Syringe SC SCH (09:05)
[2018-06-27] MEDS: Pantoprazole 20 mg EC Tab PO SCH (09:05)
[2018-06-27] MEDS: Azithromycin 500 MG in Sodium Chloride 0.9% 250 ML IVPB SCH (09:52)
[2018-06-27] MEDS ORDERED: Influenza Vaccine 60 mcg/0.5 mL SYR (4YR UP) IM ONE (12:00)
[2018-06-27] MEDS ORDERED: Pneumococcal 23-Valent Vaccine IM ONE (12:00)
[2018-06-27] MEDS: Tramadol 25 mg PO PRN ×2 (13:13→19:07)
[2018-06-28] MEDS: MethylPREDNISolone 40 mg Vial IVP SCH ×3 (05:17→21:39)
[2018-06-28] MEDS: Enoxaparin 40 mg Syringe SC SCH (09:19)
[2018-06-28] MEDS: Pantoprazole 20 mg EC Tab PO SCH (09:19)
[2018-06-28] MEDS: Azithromycin 500 MG in Sodium Chloride 0.9% 250 ML IVPB SCH (09:25)
--- NOTE | 2018-06-28 10:04 | CP.PCM.PN ---
Subjective - Date & Time of Evaluation Date of Evaluation: 06/28/18 Time of Evaluation: 10:04 - Subjective Subjective: Pulmonary follow up, Covering Dr Tellez The Patient was seen and examined at the bedside, Medical records reviewed, and management issues were discussed and formulated with the house staff. Events reviewed Patient is years old 68 female with past medical history of asthma and anxiety and depression who presented to the emergency room with worsening shortness of breath and productive cough for the past 2 weeks She was admitted with acute bronchitis started on intravenous antibiotic, steroids and nebulizer treatment CT angiogram of the chest negative for acute pulmonary embolism no consolidation or infiltrate patient looks comfortable today but she still complaining of sore throat and pain started from the throat all the way down to the abdomen on examination she looks comfortable and in no apparent distress Afebrile Adequate saturation and hemodynamically stable Objective - Vital Signs/Intake and Output Vital Signs (last 24 hours): Temp Pulse Resp BP Pulse Ox 98.1 F 58 L 20 120/69 95 06/28/18 08:00 06/28/18 08:00 06/28/18 08:00 06/28/18 08:00 06/28/18 08:00 Intake and Output: 06/28/18 06/28/18 06:59 18:59 Intake Total 420 Balance 420 - Medications Medications: Current Medications Albuterol/Ipratropium (Duoneb 3 Mg/0.5 Mg (3 Ml) Ud) 3 ml INH RQ6 PRN PRN Reason: dyspnea Clonazepam (Klonopin) 0.5 mg PO HS [facility] Last Admin: 06/27/18 21:16 Dose: 0.5 mg Cyanocobalamin (Vitamin B12 1000 Mcg Tab) 1,000 mcg PO DAILY [facility] Last Admin: 06/28/18 09:19 Dose: 1,000 mcg Enoxaparin Sodium (Lovenox) 40 mg SC DAILY [facility] Last Admin: 06/28/18 09:19 Dose: 40 mg Escitalopram Oxalate (Lexapro) 20 mg PO DAILY [facility] Last Admin: 06/28/18 09:19 Dose: 20 mg Ceftriaxone Sodium 1 gm/ (Sodium Chloride) 100 mls @ 100 mls/hr IVPB DAILY [facility]; Protocol Last Admin: 06/28/18 09:10 Dose: 100 mls/hr Azithromycin 500 mg/ Sodium (Chloride) 250 mls @ 250 mls/hr IVPB DAILY [facility]; Protocol Last Admin: 06/28/18 09:25 Dose: 250 mls/hr Methylprednisolone (Solu-Medrol) 40 mg IVP Q8 [facility] Last Admin: 06/28/18 05:17 Dose: 40 mg Montelukast Sodium (Singulair) 10 mg PO HS [facility] Last Admin: 06/27/18 21:16 Dose: 10 mg Pantoprazole Sodium (Protonix Ec Tab) 20 mg PO DAILY [facility] Last Admin: 06/28/18 09:19 Dose: 20 mg Quetiapine Fumarate (Seroquel) 50 mg PO HS [facility] Last Admin: 06/27/18 21:16 Dose: 50 mg Tramadol HCl (Ultram) 25 mg PO Q6 PRN PRN Reason: pain Last Admin: 06/27/18 19:07 Dose: 25 mg - Labs Labs: 06/25/18 13:47 06/25/18 13:47 PT 11.2 SECONDS (9.7-12.2) 06/25/18 13:47 INR 1.0 06/25/18 13:47 APTT 24 SECONDS (21-34) 06/25/18 13:47 - Head Exam Head Exam: ATRAUMATIC, NORMAL INSPECTION - Eye Exam Eye Exam: EOMI, PERRL Pupil Exam: NORMAL ACCOMODATION - Respiratory Exam Respiratory Exam: Decreased Breath Sounds, Prolonged Expiratory Phase, Rhonchi. absent: Accessory Muscle Use, Chest Wall Tenderness, Clear to Ausculation Bilat eral, Rales, Wheezes, Respiratory Distress - Cardiovascular Exam Cardiovascular Exam: REGULAR RHYTHM, +S1, +S2. absent: Murmur - GI/Abdominal Exam GI & Abdominal Exam: Soft, Normal Bowel Sounds. absent: Tenderness Assessment and Plan (1) Acute bronchitis Assessment & Plan: No infiltrate or pulmonary embolism on CT angios. On IV antibiotics. Nebulizer treatment and steroids. On Seroquel and Klonopin. Psych evaluation Status: Acute (2) Asthma Status: Acute (3) Dyspnea Status: Acute (4) Anxiety Status: Chronic (5) Schizoaffective disorder Status: Chronic
[2018-06-28] MEDS: Tramadol 25 mg PO PRN ×2 (13:22→19:19)
--- NOTE | 2018-06-28 15:29 | CP.PCM.PN ---
Subjective - Date & Time of Evaluation Date of Evaluation: 06/28/18 Time of Evaluation: 08:00 - Subjective Subjective: awake alert nad c/o sore throat wants to see ENT Objective - Vital Signs/Intake and Output Vital Signs (last 24 hours): Temp Pulse Resp BP Pulse Ox 98.1 F 47 L 20 120/69 95 06/28/18 08:00 06/28/18 13:15 06/28/18 08:00 06/28/18 08:00 06/28/18 08:00 Intake and Output: 06/28/18 06/28/18 06:59 18:59 Intake Total 420 650 Balance 420 650 - Medications Medications: Current Medications Albuterol/Ipratropium (Duoneb 3 Mg/0.5 Mg (3 Ml) Ud) 3 ml INH RQ6 PRN PRN Reason: dyspnea Clonazepam (Klonopin) 0.5 mg PO HS [facility] Last Admin: 06/27/18 21:16 Dose: 0.5 mg Cyanocobalamin (Vitamin B12 1000 Mcg Tab) 1,000 mcg PO DAILY [facility] Last Admin: 06/28/18 09:19 Dose: 1,000 mcg Enoxaparin Sodium (Lovenox) 40 mg SC DAILY [facility] Last Admin: 06/28/18 09:19 Dose: 40 mg Escitalopram Oxalate (Lexapro) 20 mg PO DAILY [facility] Last Admin: 06/28/18 09:19 Dose: 20 mg Ceftriaxone Sodium 1 gm/ (Sodium Chloride) 100 mls @ 100 mls/hr IVPB DAILY [facility]; Protocol Last Admin: 06/28/18 09:10 Dose: 100 mls/hr Azithromycin 500 mg/ Sodium (Chloride) 250 mls @ 250 mls/hr IVPB DAILY [facility]; Protocol Last Admin: 06/28/18 09:25 Dose: 250 mls/hr Methylprednisolone (Solu-Medrol) 40 mg IVP Q8 [facility] Last Admin: 06/28/18 13:18 Dose: 40 mg Montelukast Sodium (Singulair) 10 mg PO HS [facility] Last Admin: 06/27/18 21:16 Dose: 10 mg Pantoprazole Sodium (Protonix Ec Tab) 20 mg PO DAILY [facility] Last Admin: 06/28/18 09:19 Dose: 20 mg Quetiapine Fumarate (Seroquel) 50 mg PO HS [facility] Last Admin: 06/27/18 21:16 Dose: 50 mg Tramadol HCl (Ultram) 25 mg PO Q6 PRN PRN Reason: pain Last Admin: 06/28/18 13:22 Dose: 25 mg - Labs Labs: 06/25/18 13:47 06/25/18 13:47 PT 11.2 SECONDS (9.7-12.2) 06/25/18 13:47 INR 1.0 06/25/18 13:47 APTT 24 SECONDS (21-34) 06/25/18 13:47 - Constitutional Appears: Non-toxic, Chronically Ill - Head Exam Head Exam: NORMOCEPHALIC - Eye Exam Eye Exam: absent: Scleral icterus - ENT Exam ENT Exam: Normal External Ear Exam - Neck Exam Neck Exam: absent: Lymphadenopathy - Respiratory Exam Respiratory Exam: Decreased Breath Sounds - Cardiovascular Exam Cardiovascular Exam: REGULAR RHYTHM - GI/Abdominal Exam GI & Abdominal Exam: Distended, Soft - Rectal Exam Rectal Exam: Deferred - Exam Exam: NORMAL INSPECTION - Extremities Exam Extremities Exam: absent: Pedal Edema - Back Exam Back Exam: absent: CVA tenderness (L), CVA tenderness (R) - Neurological Exam Neurological Exam: Alert, Awake Assessment and Plan (1) Dyspnea Status: Acute (2) Anxiety Status: Chronic (3) Bronchitis Status: Acute - Assessment and Plan (Free Text) Assessment: cultures neg thus far improving cont rx
--- NOTE | 2018-06-28 16:30 | CP.PCM.PN ---
Subjective - Date & Time of Evaluation Date of Evaluation: 06/28/18 Time of Evaluation: 10:00 - Subjective Subjective: clinically same Objective - Vital Signs/Intake and Output Vital Signs (last 24 hours): Temp Pulse Resp BP Pulse Ox 98.1 F 60 20 130/73 95 06/28/18 16:28 06/28/18 16:28 06/28/18 16:28 06/28/18 16:28 06/28/18 16:28 Intake and Output: 06/28/18 06/28/18 06:59 18:59 Intake Total 420 650 Balance 420 650 - Medications Medications: Current Medications Albuterol/Ipratropium (Duoneb 3 Mg/0.5 Mg (3 Ml) Ud) 3 ml INH RQ6 PRN PRN Reason: dyspnea Clonazepam (Klonopin) 0.5 mg PO HS [facility] Last Admin: 06/27/18 21:16 Dose: 0.5 mg Cyanocobalamin (Vitamin B12 1000 Mcg Tab) 1,000 mcg PO DAILY [facility] Last Admin: 06/28/18 09:19 Dose: 1,000 mcg Enoxaparin Sodium (Lovenox) 40 mg SC DAILY [facility] Last Admin: 06/28/18 09:19 Dose: 40 mg Escitalopram Oxalate (Lexapro) 20 mg PO DAILY [facility] Last Admin: 06/28/18 09:19 Dose: 20 mg Ceftriaxone Sodium 1 gm/ (Sodium Chloride) 100 mls @ 100 mls/hr IVPB DAILY [facility]; Protocol Last Admin: 06/28/18 09:10 Dose: 100 mls/hr Azithromycin 500 mg/ Sodium (Chloride) 250 mls @ 250 mls/hr IVPB DAILY [facility]; Protocol Last Admin: 06/28/18 09:25 Dose: 250 mls/hr Methylprednisolone (Solu-Medrol) 40 mg IVP Q8 [facility] Last Admin: 06/28/18 13:18 Dose: 40 mg Montelukast Sodium (Singulair) 10 mg PO HS [facility] Last Admin: 06/27/18 21:16 Dose: 10 mg Pantoprazole Sodium (Protonix Ec Tab) 20 mg PO DAILY [facility] Last Admin: 06/28/18 09:19 Dose: 20 mg Quetiapine Fumarate (Seroquel) 50 mg PO HS [facility] Last Admin: 06/27/18 21:16 Dose: 50 mg Tramadol HCl (Ultram) 25 mg PO Q6 PRN PRN Reason: pain Last Admin: 06/28/18 13:22 Dose: 25 mg - Labs Labs: 06/25/18 13:47 06/25/18 13:47 PT 11.2 SECONDS (9.7-12.2) 06/25/18 13:47 INR 1.0 06/25/18 13:47 APTT 24 SECONDS (21-34) 06/25/18 13:47 - Constitutional Appears: Well - Head Exam Head Exam: ATRAUMATIC, NORMAL INSPECTION, NORMOCEPHALIC - Eye Exam Eye Exam: EOMI, Normal appearance, PERRL Pupil Exam: NORMAL ACCOMODATION, PERRL - ENT Exam ENT Exam: Mucous Membranes Moist, Normal Exam - Neck Exam Neck Exam: Full ROM, Normal Inspection. absent: Lymphadenopathy - Respiratory Exam Respiratory Exam: Decreased Breath Sounds - Cardiovascular Exam Cardiovascular Exam: REGULAR RHYTHM, +S1, +S2 - GI/Abdominal Exam GI & Abdominal Exam: Soft, Diminished Bowel Sounds - Rectal Exam Rectal Exam: Deferred
[2018-06-29] MEDS: MethylPREDNISolone 40 mg Vial IVP SCH ×3 (05:17→21:31)
[2018-06-29 07:32] LABS: HEMOGLOBIN 13.4 g/dL (11.0-16.0); MEAN CELL VOLUME 95.7 fL (81.0-99.0); MEAN CORPUSCULAR HEMOGLOBIN 31.8 pg (27.0-31.0); MEAN CORPUSCULAR HGB CONC 33.2 g/dL (33.0-37.0); MEAN PLATELET VOLUME 7.7 fL (7.2-11.7); RBC 4.21 Mil/uL (3.80-5.20); RED CELL DISTRIBUTION WIDTH 14.1 % (11.5-14.5); WHITE BLOOD COUNT 13.3 K/uL (4.8-10.8)
[2018-06-29] MEDS: Pantoprazole 20 mg EC Tab PO SCH (09:05)
[2018-06-29] MEDS: Enoxaparin 40 mg Syringe SC SCH (09:05)
[2018-06-29] MEDS: Tramadol 25 mg PO PRN ×3 (09:10→21:30)
[2018-06-29 09:40] LABS: ALB/GLOB RATIO 1.8 (1.0-2.1); ALBUMIN 3.8 g/dL (3.5-5.0); ALT/SGPT 36 U/L (9-52); AST/SGOT 22 U/L (14-36); BLOOD UREA NITROGEN 15 mg/dL (7-17); CALCIUM 9.3 mg/dl (8.6-10.4); GFR NON-AFRICAN AMERICAN > 60
--- NOTE | 2018-06-29 10:16 | CP.PCM.PN ---
Subjective - Date & Time of Evaluation Date of Evaluation: 06/29/18 Time of Evaluation: 06:15 - Subjective Subjective: Pt seen, examined this morning at bedside. Pt still reports chest pain and some SOB. Objective - Vital Signs/Intake and Output Vital Signs (last 24 hours): Temp Pulse Resp BP Pulse Ox 98.4 F 48 L 18 128/80 98 06/29/18 07:00 06/29/18 07:04 06/29/18 07:00 06/29/18 07:00 06/29/18 07:00 Intake and Output: 06/29/18 06/29/18 06:59 18:59 Intake Total 420 Balance 420 - Medications Medications: Current Medications Albuterol/Ipratropium (Duoneb 3 Mg/0.5 Mg (3 Ml) Ud) 3 ml INH RQ6 PRN PRN Reason: dyspnea Clonazepam (Klonopin) 0.5 mg PO HS [facility] Last Admin: 06/28/18 21:38 Dose: 0.5 mg Cyanocobalamin (Vitamin B12 1000 Mcg Tab) 1,000 mcg PO DAILY [facility] Last Admin: 06/29/18 09:05 Dose: 1,000 mcg Enoxaparin Sodium (Lovenox) 40 mg SC DAILY [facility] Last Admin: 06/29/18 09:05 Dose: 40 mg Escitalopram Oxalate (Lexapro) 20 mg PO DAILY [facility] Last Admin: 06/29/18 09:05 Dose: 20 mg Ceftriaxone Sodium 1 gm/ (Sodium Chloride) 100 mls @ 100 mls/hr IVPB DAILY [facility]; Protocol Last Admin: 06/28/18 09:10 Dose: 100 mls/hr Azithromycin 500 mg/ Sodium (Chloride) 250 mls @ 250 mls/hr IVPB DAILY [facility]; Protocol Last Admin: 06/28/18 09:25 Dose: 250 mls/hr Methylprednisolone (Solu-Medrol) 40 mg IVP Q8 [facility] Last Admin: 06/29/18 05:17 Dose: 40 mg Montelukast Sodium (Singulair) 10 mg PO HS [facility] Last Admin: 06/28/18 21:38 Dose: 10 mg Pantoprazole Sodium (Protonix Ec Tab) 20 mg PO DAILY [facility] Last Admin: 06/29/18 09:05 Dose: 20 mg Quetiapine Fumarate (Seroquel) 50 mg PO HS [facility] Last Admin: 06/28/18 21:38 Dose: 50 mg Tramadol HCl (Ultram) 25 mg PO Q6 PRN PRN Reason: pain Last Admin: 06/29/18 09:10 Dose: 25 mg - Labs Labs: 06/29/18 07:24 06/29/18 07:24 PT 11.2 SECONDS (9.7-12.2) 06/25/18 13:47 INR 1.0 06/25/18 13:47 APTT 24 SECONDS (21-34) 06/25/18 13:47 - Constitutional Appears: No Acute Distress - Head Exam Head Exam: ATRAUMATIC, NORMOCEPHALIC - Eye Exam Eye Exam: EOMI - ENT Exam ENT Exam: Mucous Membranes Moist - Neck Exam Neck Exam: Full ROM - Respiratory Exam Respiratory Exam: Clear to Ausculation Bilateral, NORMAL BREATHING PATTERN. absent: Accessory Muscle Use - Cardiovascular Exam Cardiovascular Exam: RRR, +S1, +S2. absent: Diastolic murmur, Murmur - GI/Abdominal Exam GI & Abdominal Exam: Soft, Normal Bowel Sounds - Extremities Exam Extremities Exam: Full ROM. absent: Pedal Edema - Neurological Exam Neurological Exam: Alert, Awake, Oriented x3 - Psychiatric Exam Psychiatric exam: Normal Affect, Normal Mood - Skin Skin Exam: Dry, Intact, Warm Assessment and Plan - Assessment and Plan (Free Text) Assessment: Assessment & Plan (1) Chest pain (2) Dyspnea (3) Polydipsia Plan: Stress test equivocal due to fatigue negative trop + negative EKG current smoker CTA Chest negative for PE Pt scheduled for cardiac cath today at 2pm HA1C follow up start statin Continue ASA Lipitor Pt seen, examined, assessment and plan discussed with Dr Bobo Babb PGY1, Internal Medicine Resident
[2018-06-29] MEDS: Azithromycin 500 MG in Sodium Chloride 0.9% 250 ML IVPB SCH (10:24)
--- NOTE | 2018-06-29 11:47 | CP.PCM.PN ---
Subjective - Date & Time of Evaluation Date of Evaluation: 06/29/18 Time of Evaluation: 10:00 - Subjective Subjective: febrile nad c/o pain ands sore throat Objective - Vital Signs/Intake and Output Vital Signs (last 24 hours): Temp Pulse Resp BP Pulse Ox 98.4 F 48 L 18 128/80 98 06/29/18 07:00 06/29/18 07:04 06/29/18 07:00 06/29/18 07:00 06/29/18 07:00 Intake and Output: 06/29/18 06/29/18 06:59 18:59 Intake Total 420 Balance 420 - Medications Medications: Current Medications Albuterol/Ipratropium (Duoneb 3 Mg/0.5 Mg (3 Ml) Ud) 3 ml INH RQ6 PRN PRN Reason: dyspnea Aspirin (Aspirin Chewable) 81 mg PO DAILY [facility] Last Admin: 06/29/18 11:10 Dose: 81 mg Clonazepam (Klonopin) 0.5 mg PO HS [facility] Last Admin: 06/28/18 21:38 Dose: 0.5 mg Cyanocobalamin (Vitamin B12 1000 Mcg Tab) 1,000 mcg PO DAILY [facility] Last Admin: 06/29/18 09:05 Dose: 1,000 mcg Enoxaparin Sodium (Lovenox) 40 mg SC DAILY [facility] Last Admin: 06/29/18 09:05 Dose: 40 mg Escitalopram Oxalate (Lexapro) 20 mg PO DAILY [facility] Last Admin: 06/29/18 09:05 Dose: 20 mg Ceftriaxone Sodium 1 gm/ (Sodium Chloride) 100 mls @ 100 mls/hr IVPB DAILY [facility]; Protocol Last Admin: 06/29/18 09:30 Dose: 100 mls/hr Azithromycin 500 mg/ Sodium (Chloride) 250 mls @ 250 mls/hr IVPB DAILY [facility]; Protocol Last Admin: 06/29/18 10:24 Dose: 250 mls/hr Methylprednisolone (Solu-Medrol) 40 mg IVP Q8 [facility] Last Admin: 06/29/18 05:17 Dose: 40 mg Montelukast Sodium (Singulair) 10 mg PO HS [facility] Last Admin: 06/28/18 21:38 Dose: 10 mg Pantoprazole Sodium (Protonix Ec Tab) 20 mg PO DAILY [facility] Last Admin: 06/29/18 09:05 Dose: 20 mg Quetiapine Fumarate (Seroquel) 50 mg PO HS [facility] Last Admin: 06/28/18 21:38 Dose: 50 mg Sucralfate (Carafate Tab) 1 gm PO ACBD [facility] Last Admin: 06/29/18 11:08 Dose: 1 gm Tramadol HCl (Ultram) 25 mg PO Q6 PRN PRN Reason: pain Last Admin: 06/29/18 09:10 Dose: 25 mg - Labs Labs: 06/29/18 07:24 06/29/18 07:24 PT 11.2 SECONDS (9.7-12.2) 06/25/18 13:47 INR 1.0 06/25/18 13:47 APTT 24 SECONDS (21-34) 06/25/18 13:47 - Constitutional Appears: Non-toxic, Chronically Ill - Head Exam Head Exam: NORMOCEPHALIC - Eye Exam Eye Exam: absent: Scleral icterus - ENT Exam ENT Exam: Mucous Membranes Dry - Neck Exam Neck Exam: absent: Lymphadenopathy - Respiratory Exam Respiratory Exam: Decreased Breath Sounds - Cardiovascular Exam Cardiovascular Exam: REGULAR RHYTHM - GI/Abdominal Exam GI & Abdominal Exam: Distended - Rectal Exam Rectal Exam: Deferred - Exam Exam: NORMAL INSPECTION - Extremities Exam Extremities Exam: absent: Pedal Edema - Back Exam Back Exam: absent: CVA tenderness (L), CVA tenderness (R) Assessment and Plan (1) Dyspnea Status: Acute (2) Anxiety Status: Chronic (3) Bronchitis Status: Acute - Assessment and Plan (Free Text) Assessment: cont rx as ordered
--- NOTE | 2018-06-29 13:31 | CP.PCM.PN ---
Subjective - Date & Time of Evaluation Date of Evaluation: 06/29/18 Time of Evaluation: 13:28 - Subjective Subjective: Dr. Reyes Service 68 year old female with a past medical history of anxiety, asthma and depression presents to hospital complaing of shortness of breath for the past couple of days. Patient recently was seen in the hospital as recent as 06/18/18 were they diagnosed her with Bronchitits and discharged her on Zithromax and prednisone. Patient admits to taking medications as prescribed, however she denies any improvement in symptoms. Patient see and examined at bedside .Per nursing no acute events occurred overnight. Patient denies any chest pain, shortness of breath, fevers, chills, nausea, vomiting, headaches, or any other complaints. Medical history:asthma , anxiety, depression Surgical history: Denies Allergies: Denies Social history: patient smokes 1/3ppd x45 years active; Patient also reports she used to work in a [employer] - did have respiratory issues during that time. FamHx: Denies hx of cardiomyopathy, DM, HLD in family Objective - Vital Signs/Intake and Output Vital Signs (last 24 hours): Temp Pulse Resp BP Pulse Ox 98.4 F 81 18 128/80 98 06/29/18 07:00 06/29/18 12:40 06/29/18 07:00 06/29/18 07:00 06/29/18 07:00 Intake and Output: 06/29/18 06/29/18 06:59 18:59 Intake Total 420 Balance 420 - Medications Medications: Current Medications Albuterol/Ipratropium (Duoneb 3 Mg/0.5 Mg (3 Ml) Ud) 3 ml INH RQ6 PRN PRN Reason: dyspnea Aspirin (Aspirin Chewable) 81 mg PO DAILY [facility] Last Admin: 06/29/18 11:10 Dose: 81 mg Clonazepam (Klonopin) 0.5 mg PO HS [facility] Last Admin: 06/28/18 21:38 Dose: 0.5 mg Cyanocobalamin (Vitamin B12 1000 Mcg Tab) 1,000 mcg PO DAILY [facility] Last Admin: 06/29/18 09:05 Dose: 1,000 mcg Enoxaparin Sodium (Lovenox) 40 mg SC DAILY [facility] Last Admin: 06/29/18 09:05 Dose: 40 mg Escitalopram Oxalate (Lexapro) 20 mg PO DAILY [facility] Last Admin: 06/29/18 09:05 Dose: 20 mg Ceftriaxone Sodium 1 gm/ (Sodium Chloride) 100 mls @ 100 mls/hr IVPB DAILY [facility]; Protocol Last Admin: 06/29/18 09:30 Dose: 100 mls/hr Azithromycin 500 mg/ Sodium (Chloride) 250 mls @ 250 mls/hr IVPB DAILY [facility]; Protocol Last Admin: 06/29/18 10:24 Dose: 250 mls/hr Methylprednisolone (Solu-Medrol) 40 mg IVP Q8 [facility] Last Admin: 06/29/18 13:07 Dose: 40 mg Montelukast Sodium (Singulair) 10 mg PO HS [facility] Last Admin: 06/28/18 21:38 Dose: 10 mg Pantoprazole Sodium (Protonix Ec Tab) 20 mg PO DAILY [facility] Last Admin: 06/29/18 09:05 Dose: 20 mg Quetiapine Fumarate (Seroquel) 50 mg PO HS [facility] Last Admin: 06/28/18 21:38 Dose: 50 mg Sucralfate (Carafate Tab) 1 gm PO ACBD [facility] Last Admin: 06/29/18 11:08 Dose: 1 gm Tramadol HCl (Ultram) 25 mg PO Q6 PRN PRN Reason: pain Last Admin: 06/29/18 09:10 Dose: 25 mg - Labs Labs: 06/29/18 07:24 06/29/18 07:24 PT 11.2 SECONDS (9.7-12.2) 06/25/18 13:47 INR 1.0 06/25/18 13:47 APTT 24 SECONDS (21-34) 06/25/18 13:47 - Head Exam Head Exam: ATRAUMATIC, NORMAL INSPECTION - Eye Exam Eye Exam: EOMI, Normal appearance, PERRL - ENT Exam ENT Exam: Mucous Membranes Moist, Normal Oropharynx - Respiratory Exam Respiratory Exam: Clear to Ausculation Bilateral - Cardiovascular Exam Cardiovascular Exam: REGULAR RHYTHM, +S1, +S2 - GI/Abdominal Exam GI & Abdominal Exam: Soft, Normal Bowel Sounds. absent: Hyperactive Bowel Sounds - Extremities Exam Extremities Exam: Full ROM, Normal Inspection. absent: Pedal Edema - Back Exam Back Exam: NORMAL INSPECTION. absent: paraspinal tenderness - Neurological Exam Neurological Exam: Alert, Awake, Oriented x3 Assessment and Plan - Assessment and Plan (Free Text) Assessment: 68 year old female with a past medical history of asthma, anxiety, and depression admitted for shortness of breath. Plan: 1. Shortness of breath Pulmonary consulted. Help appreciated Infectious Disease consulted. Help appreciated. Chest ct:No large central or segmental pulmonary embolus identified. Blood cx, throat culture negative Medications: Azithromycin 500mg IVPB DAILY [facility] Ceftriaxone 1 gm ivpb daily [facility] 2.Depression Medications: Lexapro 20mg PO DAILY [facility] Seroquel 50mg PO HS [facility] 3. Asthma Medications: Solu-medrol 40mg IVP Q8 [facility] Singulair 10mg PO HS [facility] 4.Anxiety Medications: Klonopin .5mg PO HS [facility] ppx -Lovenox -Protonix All management per Dr. Gagandeep Gibson, PGY-2
--- NOTE | 2018-06-29 14:58 | CP.PCM.PN ---
Subjective - Date & Time of Evaluation Date of Evaluation: 06/29/18 Time of Evaluation: 11:00 - Subjective Subjective: clinically same Objective - Vital Signs/Intake and Output Vital Signs (last 24 hours): Temp Pulse Resp BP Pulse Ox 98.4 F 81 18 128/80 98 06/29/18 07:00 06/29/18 12:40 06/29/18 07:00 06/29/18 07:00 06/29/18 07:00 Intake and Output: 06/29/18 06/29/18 06:59 18:59 Intake Total 420 Balance 420 - Medications Medications: Current Medications Albuterol/Ipratropium (Duoneb 3 Mg/0.5 Mg (3 Ml) Ud) 3 ml INH RQ6 PRN PRN Reason: dyspnea Aspirin (Aspirin Chewable) 81 mg PO DAILY [facility] Last Admin: 06/29/18 11:10 Dose: 81 mg Clonazepam (Klonopin) 0.5 mg PO HS [facility] Last Admin: 06/28/18 21:38 Dose: 0.5 mg Cyanocobalamin (Vitamin B12 1000 Mcg Tab) 1,000 mcg PO DAILY [facility] Last Admin: 06/29/18 09:05 Dose: 1,000 mcg Enoxaparin Sodium (Lovenox) 40 mg SC DAILY [facility] Last Admin: 06/29/18 09:05 Dose: 40 mg Escitalopram Oxalate (Lexapro) 20 mg PO DAILY [facility] Last Admin: 06/29/18 09:05 Dose: 20 mg Ceftriaxone Sodium 1 gm/ (Sodium Chloride) 100 mls @ 100 mls/hr IVPB DAILY [facility]; Protocol Last Admin: 06/29/18 09:30 Dose: 100 mls/hr Azithromycin 500 mg/ Sodium (Chloride) 250 mls @ 250 mls/hr IVPB DAILY [facility]; Protocol Last Admin: 06/29/18 10:24 Dose: 250 mls/hr Methylprednisolone (Solu-Medrol) 40 mg IVP Q8 [facility] Last Admin: 06/29/18 13:07 Dose: 40 mg Montelukast Sodium (Singulair) 10 mg PO HS [facility] Last Admin: 06/28/18 21:38 Dose: 10 mg Pantoprazole Sodium (Protonix Ec Tab) 20 mg PO DAILY [facility] Last Admin: 06/29/18 09:05 Dose: 20 mg Quetiapine Fumarate (Seroquel) 50 mg PO HS [facility] Last Admin: 06/28/18 21:38 Dose: 50 mg Sucralfate (Carafate Tab) 1 gm PO ACBD [facility] Last Admin: 06/29/18 11:08 Dose: 1 gm Tramadol HCl (Ultram) 25 mg PO Q6 PRN PRN Reason: pain Last Admin: 06/29/18 09:10 Dose: 25 mg - Labs Labs: 06/29/18 07:24 06/29/18 07:24 PT 11.2 SECONDS (9.7-12.2) 06/25/18 13:47 INR 1.0 06/25/18 13:47 APTT 24 SECONDS (21-34) 06/25/18 13:47 - Constitutional Appears: Well - Head Exam Head Exam: ATRAUMATIC, NORMAL INSPECTION, NORMOCEPHALIC - Eye Exam Eye Exam: EOMI, Normal appearance, PERRL Pupil Exam: NORMAL ACCOMODATION, PERRL - ENT Exam ENT Exam: Mucous Membranes Moist, Normal Exam - Neck Exam Neck Exam: Full ROM, Normal Inspection. absent: Lymphadenopathy - Respiratory Exam Respiratory Exam: Decreased Breath Sounds - Cardiovascular Exam Cardiovascular Exam: REGULAR RHYTHM, +S1, +S2 - GI/Abdominal Exam GI & Abdominal Exam: Soft, Diminished Bowel Sounds - Rectal Exam Rectal Exam: Deferred
--- NOTE | 2018-06-30 05:50 | CP.PCM.PN ---
Subjective - Date & Time of Evaluation Date of Evaluation: 06/30/18 Time of Evaluation: 05:47 - Subjective Subjective: Pt seen and examined this morning at bedside. Pt reports some mild chest pain with associated SOB. Per nursing, pt scheduled or cardiac cath today. Objective - Vital Signs/Intake and Output Vital Signs (last 24 hours): Temp Pulse Resp BP Pulse Ox 98.1 F 47 L 20 115/62 98 06/29/18 23:17 06/30/18 03:28 06/29/18 23:17 06/29/18 23:17 06/29/18 23:17 Intake and Output: 06/29/18 06/30/18 18:59 06:59 Intake Total 750 Balance 750 - Medications Medications: Current Medications Albuterol/Ipratropium (Duoneb 3 Mg/0.5 Mg (3 Ml) Ud) 3 ml INH RQ6 PRN PRN Reason: dyspnea Aspirin (Aspirin Chewable) 81 mg PO DAILY [facility] Last Admin: 06/29/18 11:10 Dose: 81 mg Clonazepam (Klonopin) 0.5 mg PO HS [facility] Last Admin: 06/29/18 21:31 Dose: 0.5 mg Cyanocobalamin (Vitamin B12 1000 Mcg Tab) 1,000 mcg PO DAILY [facility] Last Admin: 06/29/18 09:05 Dose: 1,000 mcg Enoxaparin Sodium (Lovenox) 40 mg SC DAILY [facility] Last Admin: 06/29/18 09:05 Dose: 40 mg Escitalopram Oxalate (Lexapro) 20 mg PO DAILY [facility] Last Admin: 06/29/18 09:05 Dose: 20 mg Ceftriaxone Sodium 1 gm/ (Sodium Chloride) 100 mls @ 100 mls/hr IVPB DAILY [facility]; Protocol Last Admin: 06/29/18 09:30 Dose: 100 mls/hr Azithromycin 500 mg/ Sodium (Chloride) 250 mls @ 250 mls/hr IVPB DAILY [facility]; Protocol Last Admin: 06/29/18 10:24 Dose: 250 mls/hr Methylprednisolone (Solu-Medrol) 40 mg IVP Q8 [facility] Last Admin: 06/29/18 21:31 Dose: 40 mg Montelukast Sodium (Singulair) 10 mg PO HS [facility] Last Admin: 06/29/18 21:31 Dose: 10 mg Pantoprazole Sodium (Protonix Ec Tab) 20 mg PO DAILY [facility] Last Admin: 02/11/19 09:05 Dose: 20 mg Quetiapine Fumarate (Seroquel) 50 mg PO HS [facility] Last Admin: 06/29/18 21:31 Dose: 50 mg Rosuvastatin Calcium (Crestor) 20 mg PO HS [facility] Last Admin: 06/29/18 21:32 Dose: 20 mg Sucralfate (Carafate Tab) 1 gm PO ACBD [facility] Last Admin: 06/29/18 17:12 Dose: 1 gm Tramadol HCl (Ultram) 25 mg PO Q6 PRN PRN Reason: pain Last Admin: 06/29/18 21:30 Dose: 25 mg - Labs Labs: 06/29/18 07:24 06/29/18 07:24 PT 11.2 SECONDS (9.7-12.2) 06/25/18 13:47 INR 1.0 06/25/18 13:47 APTT 24 SECONDS (21-34) 06/25/18 13:47 - Constitutional Appears: No Acute Distress - Head Exam Head Exam: ATRAUMATIC, NORMOCEPHALIC - Eye Exam Eye Exam: EOMI - ENT Exam ENT Exam: Mucous Membranes Moist - Neck Exam Neck Exam: Full ROM - Respiratory Exam Respiratory Exam: Clear to Ausculation Bilateral, NORMAL BREATHING PATTERN. absent: Accessory Muscle Use, Wheezes, Respiratory Distress - Cardiovascular Exam Cardiovascular Exam: RRR, +S1, +S2. absent: Diastolic murmur, Murmur - GI/Abdominal Exam GI & Abdominal Exam: Soft, Normal Bowel Sounds - Extremities Exam Extremities Exam: Full ROM. absent: Calf Tenderness, Pedal Edema - Neurological Exam Neurological Exam: Alert, Awake, Oriented x3 - Psychiatric Exam Psychiatric exam: Normal Affect, Normal Mood - Skin Skin Exam: Dry, Intact, Normal Color, Warm Assessment and Plan - Assessment and Plan (Free Text) Assessment: Assessment & Plan (1) Chest pain (2) Dyspnea (3) Polydipsia Plan: Stress test equivocal due to fatigue negative trop + negative EKG current smoker CTA Chest negative for PE HA1C follow up start statin pt scheduled for cardiac cath today 06/30/18 Continue ASA Lipitor crestor Pt seen, examined, assessment and plan discussed with Dr Bobo Babb PGY1, Internal Medicine Resident
[2018-06-30] MEDS: MethylPREDNISolone 40 mg Vial IVP SCH ×3 (06:11→22:03)
[2018-06-30] MEDS: Azithromycin 500 MG in Sodium Chloride 0.9% 250 ML IVPB SCH (10:05)
[2018-06-30] MEDS: Pantoprazole 20 mg EC Tab PO SCH (10:05)
[2018-06-30] MEDS: Enoxaparin 40 mg Syringe SC SCH (10:16)
--- NOTE | 2018-06-30 11:19 | CP.PCM.PN ---
Subjective - Date & Time of Evaluation Date of Evaluation: 06/30/18 Time of Evaluation: 10:35 - Subjective Subjective: PGY 3 Medicine Note- Dr. Gagandeep Reyes's service Patient seen and examined in no apparent acute distress. Patient states that she has been experiencing some mouth soreness for the past couple of days. She also admits to a burning sensation of the chest radiating upwards. She denies subjective fevers or chills, nausea, vomiting or shortness of breath at this time. Patient is for cardiac cath today. Objective - Vital Signs/Intake and Output Vital Signs (last 24 hours): Temp Pulse Resp BP Pulse Ox 98.2 F 50 L 20 137/79 97 06/30/18 08:00 06/30/18 08:00 06/30/18 08:00 06/30/18 08:00 06/30/18 08:00 - Medications Medications: Current Medications Albuterol/Ipratropium (Duoneb 3 Mg/0.5 Mg (3 Ml) Ud) 3 ml INH RQ6 PRN PRN Reason: dyspnea Aspirin (Aspirin Chewable) 81 mg PO DAILY [facility] Last Admin: 06/30/18 10:06 Dose: 81 mg Clonazepam (Klonopin) 0.5 mg PO HS [facility] Last Admin: 06/29/18 21:31 Dose: 0.5 mg Cyanocobalamin (Vitamin B12 1000 Mcg Tab) 1,000 mcg PO DAILY [facility] Last Admin: 06/30/18 10:06 Dose: 1,000 mcg Enoxaparin Sodium (Lovenox) 40 mg SC DAILY [facility] Last Admin: 06/30/18 10:16 Dose: Not Given Escitalopram Oxalate (Lexapro) 20 mg PO DAILY [facility] Last Admin: 06/30/18 10:06 Dose: 20 mg Ceftriaxone Sodium 1 gm/ (Sodium Chloride) 100 mls @ 100 mls/hr IVPB DAILY [facility]; Protocol Last Admin: 06/29/18 09:30 Dose: 100 mls/hr Azithromycin 500 mg/ Sodium (Chloride) 250 mls @ 250 mls/hr IVPB DAILY [facility]; Protocol Last Admin: 06/30/18 10:05 Dose: 250 mls/hr Methylprednisolone (Solu-Medrol) 40 mg IVP Q8 [facility] Last Admin: 06/30/18 06:11 Dose: 40 mg Montelukast Sodium (Singulair) 10 mg PO HS [facility] Last Admin: 06/29/18 21:31 Dose: 10 mg Pantoprazole Sodium (Protonix Ec Tab) 20 mg PO DAILY [facility] Last Admin: 06/30/18 10:05 Dose: 20 mg Quetiapine Fumarate (Seroquel) 50 mg PO HS [facility] Last Admin: 06/29/18 21:31 Dose: 50 mg Rosuvastatin Calcium (Crestor) 20 mg PO HS [facility] Last Admin: 06/29/18 21:32 Dose: 20 mg Sucralfate (Carafate Tab) 1 gm PO ACBD [facility] Last Admin: 06/30/18 08:00 Dose: 1 gm Tramadol HCl (Ultram) 25 mg PO Q6 PRN PRN Reason: pain Last Admin: 06/29/18 21:30 Dose: 25 mg - Labs Labs: 06/29/18 07:24 06/29/18 07:24 PT 11.2 SECONDS (9.7-12.2) 06/25/18 13:47 INR 1.0 06/25/18 13:47 APTT 24 SECONDS (21-34) 06/25/18 13:47 - Constitutional Appears: Non-toxic, No Acute Distress - Head Exam Head Exam: ATRAUMATIC, NORMAL INSPECTION - Eye Exam Eye Exam: EOMI, Normal appearance, PERRL Pupil Exam: NORMAL ACCOMODATION - ENT Exam ENT Exam: Mucous Membranes Moist Additional comments: cheilosis noted - Neck Exam Neck Exam: Full ROM - Respiratory Exam Respiratory Exam: NORMAL BREATHING PATTERN - Cardiovascular Exam Cardiovascular Exam: +S1, +S2 - GI/Abdominal Exam GI & Abdominal Exam: Soft - Extremities Exam Extremities Exam: Full ROM. absent: Normal Capillary Refill, Pedal Edema - Back Exam Back Exam: Full ROM - Neurological Exam Neurological Exam: Alert, Awake, Oriented x3 - Psychiatric Exam Psychiatric exam: Normal Affect, Normal Mood - Skin Skin Exam: Dry, Intact, Warm Assessment and Plan - Assessment and Plan (Free Text) Assessment: Dyspnea on Exertion Cardiac vs Pulm etiology Cardiac Stress Test with equivocal findings. For Cardiac Cath today. F/U Chest CT: No infiltrates or pulmonary emboli noted. Discontinue antibiotics at this time. Patient was previously on therapy outpatient and then was administered antibiotics despite imaging negative for infiltrates. Troponin negative x1 BNP negative Asthma Solu-medrol 40mg IVP Q8 [facility] Singulair 10mg PO HS [facility] Depression Medications: Lexapro 20mg PO DAILY [facility] Seroquel 50mg PO HS [facility] Anxiety Klonopin 0.5mg PO HS [facility] Cheilosis A+D ointment applied BID PRN to affected area Recommendations to take multivitamins as well outpatient Prophylactic Measure -Lovenox 40 MG SC -Protonix 20mg PO Discussed with attending. All management and planning per Dr. Gagandeep Reyes
[2018-06-30] MEDS: Tramadol 25 mg PO PRN (11:47)
--- NOTE | 2018-06-30 12:28 | CP.PCM.PN ---
Subjective - Date & Time of Evaluation Date of Evaluation: 06/30/18 Time of Evaluation: 11:00 - Subjective Subjective: clinically same Objective - Vital Signs/Intake and Output Vital Signs (last 24 hours): Temp Pulse Resp BP Pulse Ox 98.2 F 50 L 20 137/79 97 06/30/18 08:00 06/30/18 08:00 06/30/18 08:00 06/30/18 08:00 06/30/18 08:00 - Medications Medications: Current Medications Albuterol/Ipratropium (Duoneb 3 Mg/0.5 Mg (3 Ml) Ud) 3 ml INH RQ6 PRN PRN Reason: dyspnea Aspirin (Aspirin Chewable) 81 mg PO DAILY [facility] Last Admin: 06/30/18 10:06 Dose: 81 mg Clonazepam (Klonopin) 0.5 mg PO HS [facility] Last Admin: 06/29/18 21:31 Dose: 0.5 mg Cyanocobalamin (Vitamin B12 1000 Mcg Tab) 1,000 mcg PO DAILY [facility] Last Admin: 06/30/18 10:06 Dose: 1,000 mcg Enoxaparin Sodium (Lovenox) 40 mg SC DAILY [facility] Last Admin: 06/30/18 10:16 Dose: Not Given Escitalopram Oxalate (Lexapro) 20 mg PO DAILY [facility] Last Admin: 06/30/18 10:06 Dose: 20 mg Methylprednisolone (Solu-Medrol) 40 mg IVP Q8 [facility] Last Admin: 06/30/18 06:11 Dose: 40 mg Montelukast Sodium (Singulair) 10 mg PO HS [facility] Last Admin: 06/29/18 21:31 Dose: 10 mg Pantoprazole Sodium (Protonix Ec Tab) 20 mg PO DAILY [facility] Last Admin: 06/30/18 10:05 Dose: 20 mg Quetiapine Fumarate (Seroquel) 50 mg PO HS [facility] Last Admin: 06/29/18 21:31 Dose: 50 mg Rosuvastatin Calcium (Crestor) 20 mg PO HS [facility] Last Admin: 06/29/18 21:32 Dose: 20 mg Sucralfate (Carafate Tab) 1 gm PO ACBD [facility] Last Admin: 06/30/18 08:00 Dose: 1 gm Tramadol HCl (Ultram) 25 mg PO Q6 PRN PRN Reason: pain Last Admin: 06/30/18 11:47 Dose: 25 mg Vitamin A (Vitamin A & D Oint Ud Foilpak) 1 ea TOP BID [facility] - Labs Labs: 06/29/18 07:24 06/29/18 07:24 PT 11.2 SECONDS (9.7-12.2) 06/25/18 13:47 INR 1.0 06/25/18 13:47 APTT 24 SECONDS (21-34) 06/25/18 13:47 - Constitutional Appears: Well - Head Exam Head Exam: ATRAUMATIC, NORMAL INSPECTION, NORMOCEPHALIC - Eye Exam Eye Exam: EOMI, Normal appearance, PERRL Pupil Exam: NORMAL ACCOMODATION, PERRL - ENT Exam ENT Exam: Mucous Membranes Moist, Normal Exam - Neck Exam Neck Exam: Full ROM, Normal Inspection. absent: Lymphadenopathy - Respiratory Exam Respiratory Exam: Decreased Breath Sounds - Cardiovascular Exam Cardiovascular Exam: REGULAR RHYTHM, +S1, +S2 - GI/Abdominal Exam GI & Abdominal Exam: Soft, Diminished Bowel Sounds - Rectal Exam Rectal Exam: Deferred
[2018-06-30] MEDS: Vitamins A & D Oint UD Foilpak TOP SCH ×2 (13:43→22:04)
[2018-06-30] MEDS ORDERED: Verapamil 2 ML ONE (16:16)
[2018-06-30] MEDS ORDERED: Midazolam 2 MG/2 ML VIAL ONE (16:35)
--- NOTE | 2018-06-30 17:15 | CP.PCM.PN ---
Subjective - Date & Time of Evaluation Date of Evaluation: 06/30/18 Time of Evaluation: 08:00 - Subjective Subjective: s/p cardiac procedure in NAD Objective - Vital Signs/Intake and Output Vital Signs (last 24 hours): Temp Pulse Resp BP Pulse Ox 98.2 F 79 20 137/79 97 06/30/18 08:00 06/30/18 15:30 06/30/18 08:00 06/30/18 08:00 06/30/18 08:00 - Medications Medications: Current Medications Albuterol/Ipratropium (Duoneb 3 Mg/0.5 Mg (3 Ml) Ud) 3 ml INH RQ6 PRN PRN Reason: dyspnea Aspirin (Aspirin Chewable) 81 mg PO DAILY [facility] Last Admin: 06/30/18 10:06 Dose: 81 mg Clonazepam (Klonopin) 0.5 mg PO HS [facility] Last Admin: 06/29/18 21:31 Dose: 0.5 mg Cyanocobalamin (Vitamin B12 1000 Mcg Tab) 1,000 mcg PO DAILY [facility] Last Admin: 06/30/18 10:06 Dose: 1,000 mcg Enoxaparin Sodium (Lovenox) 40 mg SC DAILY [facility] Last Admin: 06/30/18 10:16 Dose: Not Given Escitalopram Oxalate (Lexapro) 20 mg PO DAILY [facility] Last Admin: 06/30/18 10:06 Dose: 20 mg Methylprednisolone (Solu-Medrol) 40 mg IVP Q8 [facility] Last Admin: 06/30/18 13:43 Dose: 40 mg Montelukast Sodium (Singulair) 10 mg PO HS [facility] Last Admin: 06/29/18 21:31 Dose: 10 mg Pantoprazole Sodium (Protonix Ec Tab) 20 mg PO DAILY [facility] Last Admin: 06/30/18 10:05 Dose: 20 mg Quetiapine Fumarate (Seroquel) 50 mg PO HS [facility] Last Admin: 06/29/18 21:31 Dose: 50 mg Rosuvastatin Calcium (Crestor) 20 mg PO HS [facility] Last Admin: 06/29/18 21:32 Dose: 20 mg Sucralfate (Carafate Tab) 1 gm PO ACBD [facility] Last Admin: 06/30/18 16:57 Dose: Not Given Tramadol HCl (Ultram) 25 mg PO Q6 PRN PRN Reason: pain Last Admin: 06/30/18 11:47 Dose: 25 mg Vitamin A (Vitamin A & D Oint Ud Foilpak) 1 ea TOP BID [facility] Last Admin: 06/30/18 13:43 Dose: 1 ea - Labs Labs: 06/29/18 07:24 06/29/18 07:24 PT 11.2 SECONDS (9.7-12.2) 06/25/18 13:47 INR 1.0 06/25/18 13:47 APTT 24 SECONDS (21-34) 06/25/18 13:47 - Constitutional Appears: Non-toxic, Chronically Ill - Head Exam Head Exam: NORMOCEPHALIC - Eye Exam Eye Exam: absent: Scleral icterus - ENT Exam ENT Exam: Mucous Membranes Dry - Neck Exam Neck Exam: absent: Lymphadenopathy - Respiratory Exam Respiratory Exam: Decreased Breath Sounds - Cardiovascular Exam Cardiovascular Exam: REGULAR RHYTHM - GI/Abdominal Exam GI & Abdominal Exam: Distended, Soft Assessment and Plan (1) Dyspnea Status: Acute (2) Anxiety Status: Chronic (3) Bronchitis Status: Acute - Assessment and Plan (Free Text) Assessment: cont rx
--- NOTE | 2018-07-01 07:05 | CP.PCM.PN ---
Subjective - Date & Time of Evaluation Date of Evaluation: 07/01/18 Time of Evaluation: 07:04 - Subjective Subjective: PGY 2 Medicine Note- Dr. Gagandeep Reyes's service Patient seen and examined in no apparent acute distress. Patient states that she has been experiencing some mouth soreness for the past couple of days. She also admits to a burning sensation of the chest radiating upwards. She denies subjective fevers or chills, nausea, vomiting or shortness of breath at this time. Objective - Vital Signs/Intake and Output Vital Signs (last 24 hours): Temp Pulse Resp BP Pulse Ox 97.5 F L 50 L 18 111/68 96 07/01/18 04:20 07/01/18 04:20 07/01/18 04:20 07/01/18 04:20 07/01/18 04:20 - Medications Medications: Current Medications Albuterol/Ipratropium (Duoneb 3 Mg/0.5 Mg (3 Ml) Ud) 3 ml INH RQ6 PRN PRN Reason: dyspnea Aspirin (Aspirin Chewable) 81 mg PO DAILY [facility] Last Admin: 06/30/18 10:06 Dose: 81 mg Clonazepam (Klonopin) 0.5 mg PO HS [facility] Last Admin: 06/30/18 22:03 Dose: 0.5 mg Cyanocobalamin (Vitamin B12 1000 Mcg Tab) 1,000 mcg PO DAILY [facility] Last Admin: 06/30/18 10:06 Dose: 1,000 mcg Enoxaparin Sodium (Lovenox) 40 mg SC DAILY [facility] Last Admin: 06/30/18 10:16 Dose: Not Given Escitalopram Oxalate (Lexapro) 20 mg PO DAILY [facility] Last Admin: 06/30/18 10:06 Dose: 20 mg Methylprednisolone (Solu-Medrol) 40 mg IVP Q8 [facility] Last Admin: 06/30/18 22:03 Dose: 40 mg Montelukast Sodium (Singulair) 10 mg PO HS [facility] Last Admin: 06/30/18 22:03 Dose: 10 mg Pantoprazole Sodium (Protonix Ec Tab) 20 mg PO DAILY [facility] Last Admin: 06/30/18 10:05 Dose: 20 mg Quetiapine Fumarate (Seroquel) 50 mg PO HS [facility] Last Admin: 06/30/18 22:03 Dose: 50 mg Rosuvastatin Calcium (Crestor) 20 mg PO HS [facility] Last Admin: 06/30/18 22:03 Dose: 20 mg Sucralfate (Carafate Tab) 1 gm PO ACBD [facility] Last Admin: 06/30/18 16:57 Dose: Not Given Tramadol HCl (Ultram) 25 mg PO Q6 PRN PRN Reason: pain Last Admin: 06/30/18 11:47 Dose: 25 mg Vitamin A (Vitamin A & D Oint Ud Foilpak) 1 ea TOP BID [facility] Last Admin: 06/30/18 22:04 Dose: 1 ea - Labs Labs: 06/29/18 07:24 06/29/18 07:24 PT 11.2 SECONDS (9.7-12.2) 06/25/18 13:47 INR 1.0 06/25/18 13:47 APTT 24 SECONDS (21-34) 06/25/18 13:47 - Head Exam Head Exam: ATRAUMATIC, NORMAL INSPECTION - Eye Exam Eye Exam: EOMI, Normal appearance, PERRL Pupil Exam: NORMAL ACCOMODATION - ENT Exam ENT Exam: Mucous Membranes Moist, Normal Oropharynx - Respiratory Exam Respiratory Exam: Clear to Ausculation Bilateral, NORMAL BREATHING PATTERN. absent: Prolonged Expiratory Phase, Respiratory Distress - Cardiovascular Exam Cardiovascular Exam: REGULAR RHYTHM, +S1, +S2 - GI/Abdominal Exam GI & Abdominal Exam: Soft, Normal Bowel Sounds. absent: Hyperactive Bowel Sounds - Extremities Exam Extremities Exam: Full ROM. absent: Pedal Edema - Back Exam Back Exam: NORMAL INSPECTION. absent: paraspinal tenderness - Neurological Exam Neurological Exam: Alert, Awake, Oriented x3 - Psychiatric Exam Psychiatric exam: Normal Affect, Normal Mood - Skin Skin Exam: Dry, Intact Assessment and Plan - Assessment and Plan (Free Text) Assessment: 68 year old female with a past medical history of asthma, anxiety, and depression admitted for shortness of breath. Plan: 1. Shortness of breath EKG: Sinus bradycardia Pulmonary consulted. Help appreciated Infectious Disease consulted. Help appreciated. Chest ct:No large central or segmental pulmonary embolus identified. Blood cx, throat culture negative Cardiac stress test completed. Results: Equivocal. :Will f/u with Caridology for further recommendations. Medications: Solu-medrol 40mg IVP Q8 [facility] 2.Depression Medications: Lexapro 20mg PO DAILY [facility] Seroquel 50mg PO HS [facility] 3. Asthma Medications: Solu-medrol 40mg IVP Q8 [facility] Singulair 10mg PO HS [facility] 4.Anxiety Medications: Klonopin .5mg PO HS [facility] 5. Cheliosis Medications: Vitamin A&D Ointment 1 TOP BID ppx -Lovenox -Protonix All management per Dr. Gagandeep Reyes Dispo: Follow up with Cardiology for further recommendations regarding stress test. Med Gibson, PGY-2
[2018-07-01] MEDS: MethylPREDNISolone 40 mg Vial IVP SCH ×3 (07:34→21:03)
[2018-07-01 07:42] LABS: BASO % 0.3 % (0.0-2.0); HEMOGLOBIN 13.4 g/dL (11.0-16.0); LYMPH # 0.9 K/uL (1.0-4.3); LYMPH % 6.6 % (20.0-40.0); MEAN CELL VOLUME 95.5 fL (81.0-99.0); MEAN CORPUSCULAR HEMOGLOBIN 31.7 pg (27.0-31.0); MEAN CORPUSCULAR HGB CONC 33.2 g/dL (33.0-37.0); MEAN PLATELET VOLUME 8.6 fL (7.2-11.7); MONO # 0.6 K/uL (0.0-0.8); MONO % 4.4 % (0.0-10.0); NEUT # 12.6 K/uL (1.8-7.0); NEUT % 88.7 % (50.0-75.0); PLATELET COUNT 246 K/uL (130-400); RBC 4.22 Mil/uL (3.80-5.20); WHITE BLOOD COUNT 14.2 K/uL (4.8-10.8)
[2018-07-01 07:43] VITALS: RESP 20
[2018-07-01 09:17] LABS: LYMPHOCYTE 8 % (20-40); MONOCYTE 4 % (0-10); NEUTROPHIL 88 % (50-75); PLATELET ESTIMATE NORMAL (NORMAL); TOTAL CELLS COUNTED 100
[2018-07-01] MEDS: Enoxaparin 40 mg Syringe SC SCH (09:20)
[2018-07-01] MEDS: Pantoprazole 20 mg EC Tab PO SCH (09:21)
[2018-07-01] MEDS: Vitamins A & D Oint UD Foilpak TOP SCH ×2 (09:23→17:47)
[2018-07-01] MEDS: Tramadol 25 mg PO PRN ×2 (09:33→16:07)
[2018-07-01 09:59] LABS: ALB/GLOB RATIO 1.8 (1.0-2.1); ALBUMIN 3.9 g/dL (3.5-5.0); ALT/SGPT 41 U/L (9-52); AST/SGOT 23 U/L (14-36); BLOOD UREA NITROGEN 20 mg/dL (7-17); CALCIUM 9.4 mg/dl (8.6-10.4); GFR NON-AFRICAN AMERICAN > 60
--- NOTE | 2018-07-01 15:12 | CP.PCM.PN ---
Subjective - Date & Time of Evaluation Date of Evaluation: 07/01/18 Time of Evaluation: 10:15 - Subjective Subjective: clinically same Objective - Vital Signs/Intake and Output Vital Signs (last 24 hours): Temp Pulse Resp BP Pulse Ox 98.1 F 103 H 20 97/58 L 98 07/01/18 07:00 07/01/18 07:00 07/01/18 07:00 07/01/18 07:00 07/01/18 07:00 - Medications Medications: Current Medications Albuterol/Ipratropium (Duoneb 3 Mg/0.5 Mg (3 Ml) Ud) 3 ml INH RQ6 PRN PRN Reason: dyspnea Aspirin (Aspirin Chewable) 81 mg PO DAILY [facility] Last Admin: 07/01/18 09:21 Dose: 81 mg Clonazepam (Klonopin) 0.5 mg PO HS [facility] Last Admin: 06/30/18 22:03 Dose: 0.5 mg Cyanocobalamin (Vitamin B12 1000 Mcg Tab) 1,000 mcg PO DAILY [facility] Last Admin: 07/01/18 09:21 Dose: 1,000 mcg Enoxaparin Sodium (Lovenox) 40 mg SC DAILY [facility] Last Admin: 07/01/18 09:20 Dose: 40 mg Escitalopram Oxalate (Lexapro) 20 mg PO DAILY [facility] Last Admin: 07/01/18 09:21 Dose: 20 mg Methylprednisolone (Solu-Medrol) 40 mg IVP Q8 [facility] Last Admin: 07/01/18 13:41 Dose: 40 mg Montelukast Sodium (Singulair) 10 mg PO HS [facility] Last Admin: 06/30/18 22:03 Dose: 10 mg Pantoprazole Sodium (Protonix Ec Tab) 20 mg PO DAILY [facility] Last Admin: 07/01/18 09:21 Dose: 20 mg Quetiapine Fumarate (Seroquel) 50 mg PO HS [facility] Last Admin: 06/30/18 22:03 Dose: 50 mg Rosuvastatin Calcium (Crestor) 20 mg PO HS [facility] Last Admin: 06/30/18 22:03 Dose: 20 mg Sucralfate (Carafate Tab) 1 gm PO ACBD [facility] Last Admin: 07/01/18 07:34 Dose: 1 gm Tramadol HCl (Ultram) 25 mg PO Q6 PRN PRN Reason: pain Last Admin: 07/01/18 09:33 Dose: 25 mg Vitamin A (Vitamin A & D Oint Ud Foilpak) 1 ea TOP BID [facility] Last Admin: 07/01/18 09:23 Dose: Not Given - Labs Labs: 07/01/18 07:35 07/01/18 07:35 PT 11.2 SECONDS (9.7-12.2) 06/25/18 13:47 INR 1.0 06/25/18 13:47 APTT 24 SECONDS (21-34) 06/25/18 13:47 - Constitutional Appears: Well - Head Exam Head Exam: ATRAUMATIC, NORMAL INSPECTION, NORMOCEPHALIC - Eye Exam Eye Exam: EOMI, Normal appearance, PERRL Pupil Exam: NORMAL ACCOMODATION, PERRL - ENT Exam ENT Exam: Mucous Membranes Moist, Normal Exam - Neck Exam Neck Exam: Full ROM, Normal Inspection. absent: Lymphadenopathy - Respiratory Exam Respiratory Exam: Decreased Breath Sounds - Cardiovascular Exam Cardiovascular Exam: REGULAR RHYTHM, +S1, +S2 - GI/Abdominal Exam GI & Abdominal Exam: Soft, Diminished Bowel Sounds - Rectal Exam Rectal Exam: Deferred
--- NOTE | 2018-07-01 15:55 | CP.PCM.PN ---
Subjective - Date & Time of Evaluation Date of Evaluation: 07/01/18 Time of Evaluation: 09:00 - Subjective Subjective: c/o sore throat chest pain mouth pain appears anxious afebrile Objective - Vital Signs/Intake and Output Vital Signs (last 24 hours): Temp Pulse Resp BP Pulse Ox 98.1 F 103 H 20 97/58 L 98 07/01/18 07:00 07/01/18 07:00 07/01/18 07:00 07/01/18 07:00 07/01/18 07:00 - Medications Medications: Current Medications Albuterol/Ipratropium (Duoneb 3 Mg/0.5 Mg (3 Ml) Ud) 3 ml INH RQ6 PRN PRN Reason: dyspnea Aspirin (Aspirin Chewable) 81 mg PO DAILY [facility] Last Admin: 07/01/18 09:21 Dose: 81 mg Clonazepam (Klonopin) 0.5 mg PO HS [facility] Last Admin: 06/30/18 22:03 Dose: 0.5 mg Cyanocobalamin (Vitamin B12 1000 Mcg Tab) 1,000 mcg PO DAILY [facility] Last Admin: 07/01/18 09:21 Dose: 1,000 mcg Enoxaparin Sodium (Lovenox) 40 mg SC DAILY [facility] Last Admin: 07/01/18 09:20 Dose: 40 mg Escitalopram Oxalate (Lexapro) 20 mg PO DAILY [facility] Last Admin: 07/01/18 09:21 Dose: 20 mg Methylprednisolone (Solu-Medrol) 40 mg IVP Q8 [facility] Last Admin: 07/01/18 13:41 Dose: 40 mg Montelukast Sodium (Singulair) 10 mg PO HS [facility] Last Admin: 06/30/18 22:03 Dose: 10 mg Pantoprazole Sodium (Protonix Ec Tab) 20 mg PO DAILY [facility] Last Admin: 07/01/18 09:21 Dose: 20 mg Quetiapine Fumarate (Seroquel) 50 mg PO HS [facility] Last Admin: 06/30/18 22:03 Dose: 50 mg Rosuvastatin Calcium (Crestor) 20 mg PO HS [facility] Last Admin: 06/30/18 22:03 Dose: 20 mg Sucralfate (Carafate Tab) 1 gm PO ACBD [facility] Last Admin: 07/01/18 07:34 Dose: 1 gm Tramadol HCl (Ultram) 25 mg PO Q6 PRN PRN Reason: pain Last Admin: 07/01/18 09:33 Dose: 25 mg Vitamin A (Vitamin A & D Oint Ud Foilpak) 1 ea TOP BID [facility] Last Admin: 07/01/18 09:23 Dose: Not Given - Labs Labs: 07/01/18 07:35 07/01/18 07:35 PT 11.2 SECONDS (9.7-12.2) 06/25/18 13:47 INR 1.0 06/25/18 13:47 APTT 24 SECONDS (21-34) 06/25/18 13:47 - Constitutional Appears: Well - Head Exam Head Exam: ATRAUMATIC, NORMAL INSPECTION, NORMOCEPHALIC - Eye Exam Eye Exam: EOMI, Normal appearance, PERRL Pupil Exam: NORMAL ACCOMODATION, PERRL - ENT Exam ENT Exam: Mucous Membranes Moist, Normal Exam - Neck Exam Neck Exam: Full ROM, Normal Inspection. absent: Lymphadenopathy - Respiratory Exam Respiratory Exam: Clear to Ausculation Bilateral, NORMAL BREATHING PATTERN - Cardiovascular Exam Cardiovascular Exam: REGULAR RHYTHM, +S1, +S2. absent: Murmur - GI/Abdominal Exam GI & Abdominal Exam: Soft, Normal Bowel Sounds. absent: Tenderness - Rectal Exam Rectal Exam: NORMAL INSPECTION - Extremities Exam Extremities Exam: Full ROM, Normal Capillary Refill, Normal Inspection. absent: Joint Swelling, Pedal Edema - Back Exam Back Exam: NORMAL INSPECTION - Neurological Exam Neurological Exam: Alert, Awake, CN II-XII Intact, Normal Gait, Oriented x3 - Psychiatric Exam Psychiatric exam: Normal Affect, Normal Mood - Skin Skin Exam: Dry, Intact, Normal Color, Warm Assessment and Plan (1) Dyspnea Status: Acute (2) Anxiety Status: Chronic (3) Bronchitis Status: Acute - Assessment and Plan (Free Text) Assessment: cont rx consider GI eval
--- NOTE | 2018-07-01 18:47 | CP.PCM.PN ---
Subjective - Date & Time of Evaluation Date of Evaluation: 07/01/18 Time of Evaluation: 09:00 - Subjective Subjective: Pt seen and examined this morning. Pt reports no new complaints at this time. Objective - Vital Signs/Intake and Output Vital Signs (last 24 hours): Temp Pulse Resp BP Pulse Ox 98.0 F 58 L 20 113/79 97 07/01/18 16:00 07/01/18 16:00 07/01/18 16:00 07/01/18 16:00 07/01/18 16:00 - Medications Medications: Current Medications Albuterol/Ipratropium (Duoneb 3 Mg/0.5 Mg (3 Ml) Ud) 3 ml INH RQ6 PRN PRN Reason: dyspnea Aspirin (Aspirin Chewable) 81 mg PO DAILY [facility] Last Admin: 07/01/18 09:21 Dose: 81 mg Clonazepam (Klonopin) 0.5 mg PO HS [facility] Last Admin: 06/30/18 22:03 Dose: 0.5 mg Cyanocobalamin (Vitamin B12 1000 Mcg Tab) 1,000 mcg PO DAILY [facility] Last Admin: 07/01/18 09:21 Dose: 1,000 mcg Docusate Sodium (Colace) 100 mg PO DAILY [facility] Last Admin: 07/01/18 17:47 Dose: 100 mg Enoxaparin Sodium (Lovenox) 40 mg SC DAILY [facility] Last Admin: 07/01/18 09:20 Dose: 40 mg Escitalopram Oxalate (Lexapro) 20 mg PO DAILY [facility] Last Admin: 07/01/18 09:21 Dose: 20 mg Methylprednisolone (Solu-Medrol) 40 mg IVP Q8 [facility] Last Admin: 07/01/18 13:41 Dose: 40 mg Montelukast Sodium (Singulair) 10 mg PO HS [facility] Last Admin: 06/30/18 22:03 Dose: 10 mg Pantoprazole Sodium (Protonix Ec Tab) 20 mg PO DAILY [facility] Last Admin: 07/01/18 09:21 Dose: 20 mg Quetiapine Fumarate (Seroquel) 50 mg PO HS [facility] Last Admin: 06/30/18 22:03 Dose: 50 mg Rosuvastatin Calcium (Crestor) 20 mg PO HS [facility] Last Admin: 06/30/18 22:03 Dose: 20 mg Sucralfate (Carafate Tab) 1 gm PO ACBD [facility] Last Admin: 07/01/18 16:08 Dose: 1 gm Tramadol HCl (Ultram) 25 mg PO Q6 PRN PRN Reason: pain Last Admin: 07/01/18 16:07 Dose: 25 mg Vitamin A (Vitamin A & D Oint Ud Foilpak) 1 ea TOP BID [facility] Last Admin: 07/01/18 17:47 Dose: 1 ea - Labs Labs: 07/01/18 07:35 07/01/18 07:35 PT 11.2 SECONDS (9.7-12.2) 06/25/18 13:47 INR 1.0 06/25/18 13:47 APTT 24 SECONDS (21-34) 06/25/18 13:47 - Constitutional Appears: No Acute Distress - Head Exam Head Exam: ATRAUMATIC, NORMOCEPHALIC - Eye Exam Eye Exam: EOMI - ENT Exam ENT Exam: Mucous Membranes Moist - Neck Exam Neck Exam: Full ROM - Respiratory Exam Respiratory Exam: Clear to Ausculation Bilateral, NORMAL BREATHING PATTERN. absent: Accessory Muscle Use - Cardiovascular Exam Cardiovascular Exam: RRR, +S1, +S2. absent: Diastolic murmur, Murmur - GI/Abdominal Exam GI & Abdominal Exam: Soft, Normal Bowel Sounds - Extremities Exam Extremities Exam: Full ROM - Neurological Exam Neurological Exam: Alert, Awake, Oriented x3 - Psychiatric Exam Psychiatric exam: Normal Affect, Normal Mood - Skin Skin Exam: Dry, Intact, Warm Assessment and Plan - Assessment and Plan (Free Text) Assessment: (1) Chest pain (2) Dyspnea (3) Polydipsia Plan: Stress test equivocal due to fatigue Trop negative EKG no signs of ischmic changes pt is a current smoker CTA Chest negative for PE Cardiac cath 06/30/18 Continue ASA Lipitor crestor Pt seen, examined, assessment and plan discussed with Dr Bobo Babb PGY1, Internal Medicine Resident
[2018-07-02] MEDS: MethylPREDNISolone 40 mg Vial IVP SCH ×3 (06:54→22:25)
--- NOTE | 2018-07-02 07:16 | CP.PCM.PN ---
Subjective - Date & Time of Evaluation Date of Evaluation: 07/02/18 Time of Evaluation: 09:00 - Subjective Subjective: Medicine Progress Note for Dr. Ej Reyes: Patient was seen and examined at bedside in the AM. Patient states she has been feeling constipated for about a week. She also complains of reflux especially after she eats. She denies subjective fevers or chills, nausea, vomiting, chest pain or shortness of breath at this time. Objective - Vital Signs/Intake and Output Vital Signs (last 24 hours): Temp Pulse Resp BP Pulse Ox 98.4 F 49 L 20 107/58 L 96 07/01/18 23:15 07/02/18 03:22 07/01/18 23:15 07/01/18 23:15 07/01/18 23:15 - Medications Medications: Current Medications Albuterol/Ipratropium (Duoneb 3 Mg/0.5 Mg (3 Ml) Ud) 3 ml INH RQ6 PRN PRN Reason: dyspnea Aspirin (Aspirin Chewable) 81 mg PO DAILY [facility] Last Admin: 07/01/18 09:21 Dose: 81 mg Clonazepam (Klonopin) 0.5 mg PO HS [facility] Last Admin: 07/01/18 21:01 Dose: 0.5 mg Cyanocobalamin (Vitamin B12 1000 Mcg Tab) 1,000 mcg PO DAILY [facility] Last Admin: 07/01/18 09:21 Dose: 1,000 mcg Docusate Sodium (Colace) 100 mg PO DAILY [facility] Last Admin: 07/01/18 17:47 Dose: 100 mg Enoxaparin Sodium (Lovenox) 40 mg SC DAILY [facility] Last Admin: 07/01/18 09:20 Dose: 40 mg Escitalopram Oxalate (Lexapro) 20 mg PO DAILY [facility] Last Admin: 07/01/18 09:21 Dose: 20 mg Methylprednisolone (Solu-Medrol) 40 mg IVP Q8 [facility] Last Admin: 07/02/18 06:54 Dose: 40 mg Montelukast Sodium (Singulair) 10 mg PO HS [facility] Last Admin: 07/01/18 21:01 Dose: 10 mg Pantoprazole Sodium (Protonix Ec Tab) 20 mg PO DAILY [facility] Last Admin: 07/01/18 09:21 Dose: 20 mg Quetiapine Fumarate (Seroquel) 50 mg PO HS [facility] Last Admin: 07/01/18 21:02 Dose: 50 mg Rosuvastatin Calcium (Crestor) 20 mg PO HS [facility] Last Admin: 07/01/18 21:02 Dose: 20 mg Sucralfate (Carafate Tab) 1 gm PO ACBD [facility] Last Admin: 07/02/18 06:53 Dose: 1 gm Tramadol HCl (Ultram) 25 mg PO Q6 PRN PRN Reason: pain Last Admin: 07/01/18 16:07 Dose: 25 mg Vitamin A (Vitamin A & D Oint Ud Foilpak) 1 ea TOP BID [facility] Last Admin: 07/01/18 17:47 Dose: 1 ea - Labs Labs: 07/01/18 07:35 07/01/18 07:35 PT 11.2 SECONDS (9.7-12.2) 06/25/18 13:47 INR 1.0 06/25/18 13:47 APTT 24 SECONDS (21-34) 06/25/18 13:47 - Constitutional Appears: No Acute Distress - Head Exam Head Exam: ATRAUMATIC, NORMAL INSPECTION - Eye Exam Eye Exam: EOMI, Normal appearance - ENT Exam ENT Exam: Mucous Membranes Moist - Respiratory Exam Respiratory Exam: Clear to Ausculation Bilateral, NORMAL BREATHING PATTERN - Cardiovascular Exam Cardiovascular Exam: REGULAR RHYTHM, +S1, +S2 - GI/Abdominal Exam GI & Abdominal Exam: Soft, Normal Bowel Sounds. absent: Distended, Firm, Guarding, Rigid, Tenderness - Extremities Exam Extremities Exam: Normal Inspection - Neurological Exam Neurological Exam: Alert, Awake, Oriented x3 - Psychiatric Exam Psychiatric exam: Anxious - Skin Skin Exam: Normal Color Assessment and Plan - Assessment and Plan (Free Text) Assessment: Shortness of breath - resolved - EKG: Sinus bradycardia - Pulmonary consulted. Help appreciated - Infectious Disease consulted. Help appreciated. - Chest ct:No large central or segmental pulmonary embolus identified. - Blood cx, throat culture negative - Cardiology Consult: Dr. Broussard --> help appreciated * Cardiac stress test completed. Results: Equivocal due to fatigue * will f/u with cardio for cardiac cath results - Medications: * Solu-medrol 40mg IVP Q12 [facility] Depression - Medications: * Lexapro 20mg PO DAILY [facility] * Seroquel 50mg PO HS [facility] Asthma - Medications: * Solu-medrol 40mg IVP Q12 [facility] * Singulair 10mg PO HS [facility] Anxiety - Medications: * Klonopin .5mg PO HS [facility] Cheliosis - Medications: * Vitamin A&D Ointment 1 TOP BID Prophylaxis - Lovenox - Protonix Discussed with attending. All planning and management per Dr. Reyes. Christina Cota PGY-2
[2018-07-02] MEDS: Tramadol 25 mg PO PRN ×2 (09:32→17:35)
[2018-07-02] MEDS: Enoxaparin 40 mg Syringe SC SCH (09:32)
[2018-07-02] MEDS: Pantoprazole 20 mg EC Tab PO SCH (09:32)
[2018-07-02] MEDS: Vitamins A & D Oint UD Foilpak TOP SCH ×2 (10:00→22:25)
--- NOTE | 2018-07-02 19:07 | CP.PCM.PN ---
Subjective - Date & Time of Evaluation Date of Evaluation: 07/02/18 Time of Evaluation: 10:00 - Subjective Subjective: continues to express multiple complaints appears anxious afebrile Thyroid tests abnormal - consider endocrine eval Objective - Vital Signs/Intake and Output Vital Signs (last 24 hours): Temp Pulse Resp BP Pulse Ox 98.4 F 67 20 123/76 95 07/02/18 16:00 07/02/18 16:00 07/02/18 16:00 07/02/18 16:00 07/02/18 16:00 - Medications Medications: Current Medications Albuterol/Ipratropium (Duoneb 3 Mg/0.5 Mg (3 Ml) Ud) 3 ml INH RQ6 PRN PRN Reason: dyspnea Aspirin (Aspirin Chewable) 81 mg PO DAILY [facility] Last Admin: 07/02/18 09:32 Dose: 81 mg Clonazepam (Klonopin) 0.5 mg PO HS [facility] Last Admin: 07/01/18 21:01 Dose: 0.5 mg Cyanocobalamin (Vitamin B12 1000 Mcg Tab) 1,000 mcg PO DAILY [facility] Last Admin: 07/02/18 09:31 Dose: 1,000 mcg Docusate Sodium (Colace) 100 mg PO DAILY [facility] Last Admin: 07/02/18 10:00 Dose: 100 mg Enoxaparin Sodium (Lovenox) 40 mg SC DAILY [facility] Last Admin: 07/02/18 09:32 Dose: 40 mg Escitalopram Oxalate (Lexapro) 20 mg PO DAILY [facility] Last Admin: 07/02/18 09:32 Dose: 20 mg Methylprednisolone (Solu-Medrol) 40 mg IVP Q12 [facility] Montelukast Sodium (Singulair) 10 mg PO HS [facility] Last Admin: 07/01/18 21:01 Dose: 10 mg Pantoprazole Sodium (Protonix Ec Tab) 20 mg PO DAILY [facility] Last Admin: 07/02/18 09:32 Dose: 20 mg Quetiapine Fumarate (Seroquel) 50 mg PO HS [facility] Last Admin: 07/01/18 21:02 Dose: 50 mg Rosuvastatin Calcium (Crestor) 20 mg PO HS [facility] Last Admin: 07/01/18 21:02 Dose: 20 mg Sucralfate (Carafate Tab) 1 gm PO ACBD [facility] Last Admin: 07/02/18 17:30 Dose: 1 gm Tramadol HCl (Ultram) 25 mg PO Q6 PRN PRN Reason: pain Last Admin: 07/02/18 17:35 Dose: 25 mg Vitamin A (Vitamin A & D Oint Ud Foilpak) 1 ea TOP BID [facility] Last Admin: 07/02/18 10:00 Dose: Not Given - Labs Labs: 07/01/18 07:35 07/01/18 07:35 PT 11.2 SECONDS (9.7-12.2) 06/25/18 13:47 INR 1.0 06/25/18 13:47 APTT 24 SECONDS (21-34) 06/25/18 13:47 - Constitutional Appears: Well - Head Exam Head Exam: ATRAUMATIC, NORMAL INSPECTION, NORMOCEPHALIC - Eye Exam Eye Exam: EOMI, Normal appearance, PERRL Pupil Exam: NORMAL ACCOMODATION, PERRL - ENT Exam ENT Exam: Mucous Membranes Moist, Normal Exam - Neck Exam Neck Exam: Full ROM, Normal Inspection. absent: Lymphadenopathy - Respiratory Exam Respiratory Exam: Clear to Ausculation Bilateral, NORMAL BREATHING PATTERN - Cardiovascular Exam Cardiovascular Exam: REGULAR RHYTHM, +S1, +S2. absent: Murmur - GI/Abdominal Exam GI & Abdominal Exam: Soft, Normal Bowel Sounds. absent: Tenderness - Rectal Exam Rectal Exam: Deferred - Exam Exam: NORMAL INSPECTION - Extremities Exam Extremities Exam: Full ROM, Normal Capillary Refill, Normal Inspection. absent: Joint Swelling, Pedal Edema - Back Exam Back Exam: NORMAL INSPECTION - Neurological Exam Neurological Exam: Alert, Awake, CN II-XII Intact, Normal Gait, Oriented x3 - Psychiatric Exam Psychiatric exam: Normal Affect, Normal Mood - Skin Skin Exam: Dry, Intact, Normal Color, Warm Assessment and Plan (1) Dyspnea Status: Acute (2) Anxiety Status: Chronic (3) Bronchitis Status: Acute - Assessment and Plan (Free Text) Assessment: continues to express multiple complaints appears anxious afebrile Thyroid tests abnormal - consider endocrine eval
--- NOTE | 2018-07-02 19:30 | CP.PCM.PN ---
Subjective - Date & Time of Evaluation Date of Evaluation: 07/02/18 Time of Evaluation: 09:15 - Subjective Subjective: clinically same Objective - Vital Signs/Intake and Output Vital Signs (last 24 hours): Temp Pulse Resp BP Pulse Ox 98.4 F 67 20 123/76 95 07/02/18 16:00 07/02/18 16:00 07/02/18 16:00 07/02/18 16:00 07/02/18 16:00 - Medications Medications: Current Medications Albuterol/Ipratropium (Duoneb 3 Mg/0.5 Mg (3 Ml) Ud) 3 ml INH RQ6 PRN PRN Reason: dyspnea Aspirin (Aspirin Chewable) 81 mg PO DAILY [facility] Last Admin: 07/02/18 09:32 Dose: 81 mg Clonazepam (Klonopin) 0.5 mg PO HS [facility] Last Admin: 07/01/18 21:01 Dose: 0.5 mg Cyanocobalamin (Vitamin B12 1000 Mcg Tab) 1,000 mcg PO DAILY [facility] Last Admin: 07/02/18 09:31 Dose: 1,000 mcg Docusate Sodium (Colace) 100 mg PO DAILY [facility] Last Admin: 07/02/18 10:00 Dose: 100 mg Enoxaparin Sodium (Lovenox) 40 mg SC DAILY [facility] Last Admin: 07/02/18 09:32 Dose: 40 mg Escitalopram Oxalate (Lexapro) 20 mg PO DAILY [facility] Last Admin: 07/02/18 09:32 Dose: 20 mg Methylprednisolone (Solu-Medrol) 40 mg IVP Q12 [facility] Montelukast Sodium (Singulair) 10 mg PO HS [facility] Last Admin: 07/01/18 21:01 Dose: 10 mg Pantoprazole Sodium (Protonix Ec Tab) 20 mg PO DAILY [facility] Last Admin: 07/02/18 09:32 Dose: 20 mg Quetiapine Fumarate (Seroquel) 50 mg PO HS [facility] Last Admin: 07/01/18 21:02 Dose: 50 mg Rosuvastatin Calcium (Crestor) 20 mg PO HS [facility] Last Admin: 07/01/18 21:02 Dose: 20 mg Sucralfate (Carafate Tab) 1 gm PO ACBD [facility] Last Admin: 07/02/18 17:30 Dose: 1 gm Tramadol HCl (Ultram) 25 mg PO Q6 PRN PRN Reason: pain Last Admin: 02/14/19 17:35 Dose: 25 mg Vitamin A (Vitamin A & D Oint Ud Foilpak) 1 ea TOP BID [facility] Last Admin: 07/02/18 10:00 Dose: Not Given - Labs Labs: 07/01/18 07:35 07/01/18 07:35 PT 11.2 SECONDS (9.7-12.2) 06/25/18 13:47 INR 1.0 06/25/18 13:47 APTT 24 SECONDS (21-34) 06/25/18 13:47 - Constitutional Appears: Well - Head Exam Head Exam: ATRAUMATIC, NORMAL INSPECTION, NORMOCEPHALIC - Eye Exam Eye Exam: EOMI, Normal appearance, PERRL Pupil Exam: NORMAL ACCOMODATION, PERRL - ENT Exam ENT Exam: Mucous Membranes Moist, Normal Exam - Neck Exam Neck Exam: Full ROM, Normal Inspection. absent: Lymphadenopathy - Respiratory Exam Respiratory Exam: Decreased Breath Sounds - Cardiovascular Exam Cardiovascular Exam: REGULAR RHYTHM, +S1, +S2 - GI/Abdominal Exam GI & Abdominal Exam: Soft, Diminished Bowel Sounds - Rectal Exam Rectal Exam: Deferred
--- NOTE | 2018-07-03 07:39 | CP.PCM.PN ---
Subjective - Date & Time of Evaluation Date of Evaluation: 07/03/18 Time of Evaluation: 07:39 - Subjective Subjective: PGY 2 Medicine Note- Dr. Gagandeep Reyes's service Patient seen and examined in no apparent acute distress. Patient states that she has been experiencing some mouth soreness for the past couple of days. She also admits to a burning sensation of the chest radiating upwards. She denies subjective fevers or chills, nausea, vomiting or shortness of breath at this time. Objective - Vital Signs/Intake and Output Vital Signs (last 24 hours): Temp Pulse Resp BP Pulse Ox 97.7 F 53 L 20 112/65 97 07/02/18 23:10 07/02/18 23:10 07/02/18 23:10 07/02/18 23:10 07/02/18 23:10 - Medications Medications: Current Medications Albuterol/Ipratropium (Duoneb 3 Mg/0.5 Mg (3 Ml) Ud) 3 ml INH RQ6 PRN PRN Reason: dyspnea Aspirin (Aspirin Chewable) 81 mg PO DAILY [facility] Last Admin: 07/02/18 09:32 Dose: 81 mg Clonazepam (Klonopin) 0.5 mg PO HS [facility] Last Admin: 07/02/18 22:24 Dose: 0.5 mg Cyanocobalamin (Vitamin B12 1000 Mcg Tab) 1,000 mcg PO DAILY [facility] Last Admin: 07/02/18 09:31 Dose: 1,000 mcg Docusate Sodium (Colace) 100 mg PO DAILY [facility] Last Admin: 07/02/18 10:00 Dose: 100 mg Enoxaparin Sodium (Lovenox) 40 mg SC DAILY [facility] Last Admin: 07/02/18 09:32 Dose: 40 mg Escitalopram Oxalate (Lexapro) 20 mg PO DAILY [facility] Last Admin: 07/02/18 09:32 Dose: 20 mg Methylprednisolone (Solu-Medrol) 40 mg IVP Q12 [facility] Last Admin: 07/02/18 22:25 Dose: 40 mg Montelukast Sodium (Singulair) 10 mg PO HS [facility] Last Admin: 07/02/18 22:24 Dose: 10 mg Pantoprazole Sodium (Protonix Ec Tab) 20 mg PO DAILY [facility] Last Admin: 07/02/18 09:32 Dose: 20 mg Quetiapine Fumarate (Seroquel) 50 mg PO HS [facility] Last Admin: 07/02/18 22:24 Dose: 50 mg Rosuvastatin Calcium (Crestor) 20 mg PO HS [facility] Last Admin: 07/02/18 22:24 Dose: 20 mg Sucralfate (Carafate Tab) 1 gm PO ACBD [facility] Last Admin: 07/03/18 06:45 Dose: 1 gm Tramadol HCl (Ultram) 25 mg PO Q6 PRN PRN Reason: pain Last Admin: 07/02/18 17:35 Dose: 25 mg Vitamin A (Vitamin A & D Oint Ud Foilpak) 1 ea TOP BID [facility] Last Admin: 07/02/18 22:25 Dose: Not Given - Labs Labs: 07/01/18 07:35 07/01/18 07:35 PT 11.2 SECONDS (9.7-12.2) 06/25/18 13:47 INR 1.0 06/25/18 13:47 APTT 24 SECONDS (21-34) 06/25/18 13:47 - Head Exam Head Exam: ATRAUMATIC, NORMAL INSPECTION - Eye Exam Eye Exam: EOMI, Normal appearance, PERRL Pupil Exam: NORMAL ACCOMODATION - ENT Exam ENT Exam: Mucous Membranes Moist, Normal Oropharynx - Respiratory Exam Respiratory Exam: Clear to Ausculation Bilateral, NORMAL BREATHING PATTERN. absent: Prolonged Expiratory Phase, Respiratory Distress - Cardiovascular Exam Cardiovascular Exam: REGULAR RHYTHM, +S1, +S2 - GI/Abdominal Exam GI & Abdominal Exam: Soft, Normal Bowel Sounds. absent: Hyperactive Bowel Sounds - Neurological Exam Neurological Exam: Alert, Awake, Oriented x3 - Psychiatric Exam Psychiatric exam: Normal Affect, Normal Mood - Skin Skin Exam: Dry, Intact, Normal Color. absent: Cyanosis Assessment and Plan - Assessment and Plan (Free Text) Assessment: 68 year old female with a past medical history of asthma, anxiety, and depression admitted for shortness of breath. Plan: 1. Shortness of breath EKG: Sinus bradycardia Pulmonary consulted. Help appreciated Infectious Disease consulted. Help appreciated. Chest ct:No large central or segmental pulmonary embolus identified. Blood cx, throat culture negative Cardiac stress test completed. Results: Equivocal. :Will f/u with Caridology for further recommendations. Medications: Solu-medrol 40mg IVP Q8 [facility] 2.Depression Medications: Lexapro 20mg PO DAILY [facility] Seroquel 50mg PO HS [facility] 3. Asthma Medications: Solu-medrol 40mg IVP Q8 [facility] Singulair 10mg PO HS [facility] 4.Anxiety Medications: Klonopin .5mg PO HS [facility] 5. Cheliosis Medications: Vitamin A&D Ointment 1 TOP BID 6.Constipation Medications: Colace 100mg PO Daily Fleet enema given. ppx -Lovenox -Protonix All management per Dr. Gagandeep Reyes Dispo: Follow up with Cardiology for further recommendations regarding stress test. Discharge Instructions: 1. F/u with PMD within 5 days of discharge. 2.F/u with Cardiology within 5 days of discharge. 3. Return to hospital for any new or worsening symptoms. Medications: 1. Aspirin 81mg PO Daily, #30, No refills 2.Protonix 20mg PO Daily, #30, No refills 3.Lactulose 30MG PO HS, #30, No refills 4. Simethocone 80mg Daily, #30, No refills 5.Lexapro 20mg PO Daily, #30, No refills 6. Seroquel 50mg PO HS, #30, No refills 7. Crestor 10mg PO HS, #30, No refills Med Gibson, PGY-2
--- NOTE | 2018-07-03 09:48 | CP.PCM.PN ---
Subjective - Date & Time of Evaluation Date of Evaluation: 07/03/18 Time of Evaluation: 07:25 - Subjective Subjective: Pt seen and examined this morning. No new complaints Objective - Vital Signs/Intake and Output Vital Signs (last 24 hours): Temp Pulse Resp BP Pulse Ox 97.8 F 51 L 20 105/65 98 07/03/18 07:00 07/03/18 07:00 07/03/18 07:00 07/03/18 07:00 07/03/18 07:00 - Medications Medications: Current Medications Albuterol/Ipratropium (Duoneb 3 Mg/0.5 Mg (3 Ml) Ud) 3 ml INH RQ6 PRN PRN Reason: dyspnea Aspirin (Aspirin Chewable) 81 mg PO DAILY [facility] Last Admin: 07/02/18 09:32 Dose: 81 mg Clonazepam (Klonopin) 0.5 mg PO HS [facility] Last Admin: 07/02/18 22:24 Dose: 0.5 mg Cyanocobalamin (Vitamin B12 1000 Mcg Tab) 1,000 mcg PO DAILY [facility] Last Admin: 07/02/18 09:31 Dose: 1,000 mcg Docusate Sodium (Colace) 100 mg PO DAILY [facility] Last Admin: 07/02/18 10:00 Dose: 100 mg Enoxaparin Sodium (Lovenox) 40 mg SC DAILY [facility] Last Admin: 07/02/18 09:32 Dose: 40 mg Escitalopram Oxalate (Lexapro) 20 mg PO DAILY [facility] Last Admin: 07/02/18 09:32 Dose: 20 mg Methylprednisolone (Solu-Medrol) 40 mg IVP Q12 [facility] Last Admin: 07/02/18 22:25 Dose: 40 mg Montelukast Sodium (Singulair) 10 mg PO HS [facility] Last Admin: 07/02/18 22:24 Dose: 10 mg Pantoprazole Sodium (Protonix Ec Tab) 20 mg PO DAILY [facility] Last Admin: 07/02/18 09:32 Dose: 20 mg Quetiapine Fumarate (Seroquel) 50 mg PO HS [facility] Last Admin: 07/02/18 22:24 Dose: 50 mg Rosuvastatin Calcium (Crestor) 20 mg PO HS [facility] Last Admin: 07/02/18 22:24 Dose: 20 mg Sucralfate (Carafate Tab) 1 gm PO ACBD [facility] Last Admin: 07/03/18 06:45 Dose: 1 gm Tramadol HCl (Ultram) 25 mg PO Q6 PRN PRN Reason: pain Last Admin: 07/02/18 17:35 Dose: 25 mg Vitamin A (Vitamin A & D Oint Ud Foilpak) 1 ea TOP BID [facility] Last Admin: 07/02/18 22:25 Dose: Not Given - Labs Labs: 07/01/18 07:35 07/01/18 07:35 PT 11.2 SECONDS (9.7-12.2) 06/25/18 13:47 INR 1.0 06/25/18 13:47 APTT 24 SECONDS (21-34) 06/25/18 13:47 - Constitutional Appears: No Acute Distress - Head Exam Head Exam: ATRAUMATIC, NORMOCEPHALIC - Eye Exam Eye Exam: EOMI - ENT Exam ENT Exam: Mucous Membranes Moist - Neck Exam Neck Exam: Full ROM - Respiratory Exam Respiratory Exam: Clear to Ausculation Bilateral, NORMAL BREATHING PATTERN. absent: Accessory Muscle Use - Cardiovascular Exam Cardiovascular Exam: +S1, +S2. absent: Diastolic murmur - GI/Abdominal Exam GI & Abdominal Exam: Soft, Normal Bowel Sounds - Extremities Exam Extremities Exam: Full ROM. absent: Calf Tenderness, Pedal Edema, Tenderness - Neurological Exam Neurological Exam: Alert, Awake, Oriented x3 - Psychiatric Exam Psychiatric exam: Normal Affect, Normal Mood - Skin Skin Exam: Dry, Normal Color, Warm Assessment and Plan - Assessment and Plan (Free Text) Assessment: (1) Chest pain (2) Dyspnea (3) Polydipsia Plan: Stress test equivocal due to fatigue Trop negative EKG no signs of ischmic changes Tobacco abuse CTA Chest negative for PE Cardiac cath 06/30/18, no stent was placed not sending pt home on beta jalen due to her already low heart rate will send pt home on ASA crestor Pt seen, examined, assessment and plan discussed with Dr Bobo Babb PGY1, Internal Medicine Resident
[2018-07-03 10:42] LABS: ANTI STREPTOLYSIN O POSITIVE (NEGATIVE)
[2018-07-03 10:47] LABS: ASO TITER =>200 IU/ML (NEGATIVE)
[2018-07-03] MEDS: Pantoprazole 20 mg EC Tab PO SCH (11:07)
[2018-07-03] MEDS: Tramadol 25 mg PO PRN (11:07)
[2018-07-03] MEDS: Enoxaparin 40 mg Syringe SC SCH (11:08)
[2018-07-03] MEDS: Vitamins A & D Oint UD Foilpak TOP SCH (11:09)
[2018-07-03] MEDS: MethylPREDNISolone 40 mg Vial IVP SCH (11:28)
[2018-07-03 16:52] VITALS: BP 135/79; PULSE 61; TEMP 97.3; O2SAT 95
--- NOTE | 2018-07-03 18:01 | CP.PCM.PN ---
Subjective - Date & Time of Evaluation Date of Evaluation: 07/03/18 Time of Evaluation: 09:00 - Subjective Subjective: continues to express multiple complaints appears anxious afebrile Thyroid tests abnormal - consider endocrine eval Objective - Vital Signs/Intake and Output Vital Signs (last 24 hours): Temp Pulse Resp BP Pulse Ox 97.3 F L 61 20 135/79 95 07/03/18 16:00 07/03/18 16:00 07/03/18 16:00 07/03/18 16:00 07/03/18 16:00 - Labs Labs: 07/01/18 07:35 07/01/18 07:35 PT 11.2 SECONDS (9.7-12.2) 06/25/18 13:47 INR 1.0 06/25/18 13:47 APTT 24 SECONDS (21-34) 06/25/18 13:47 - Constitutional Appears: Well - Head Exam Head Exam: ATRAUMATIC, NORMAL INSPECTION, NORMOCEPHALIC - Eye Exam Eye Exam: EOMI, Normal appearance, PERRL Pupil Exam: NORMAL ACCOMODATION, PERRL - ENT Exam ENT Exam: Mucous Membranes Moist, Normal Exam - Neck Exam Neck Exam: Full ROM, Normal Inspection. absent: Lymphadenopathy - Respiratory Exam Respiratory Exam: Clear to Ausculation Bilateral, NORMAL BREATHING PATTERN - Cardiovascular Exam Cardiovascular Exam: REGULAR RHYTHM, +S1, +S2. absent: Murmur - GI/Abdominal Exam GI & Abdominal Exam: Soft, Normal Bowel Sounds. absent: Tenderness - Rectal Exam Rectal Exam: Deferred - Exam Exam: NORMAL INSPECTION - Extremities Exam Extremities Exam: Full ROM, Normal Capillary Refill, Normal Inspection. absent: Joint Swelling, Pedal Edema - Back Exam Back Exam: NORMAL INSPECTION - Neurological Exam Neurological Exam: Alert, Awake, CN II-XII Intact, Normal Gait, Oriented x3 - Psychiatric Exam Psychiatric exam: Normal Affect, Normal Mood - Skin Skin Exam: Dry, Intact, Normal Color, Warm Assessment and Plan (1) Dyspnea Status: Acute (2) Anxiety Status: Chronic (3) Bronchitis Status: Acute - Assessment and Plan (Free Text) Assessment: continues to express multiple complaints appears anxious afebrile Thyroid tests abnormal - consider endocrine eval
--- NOTE | 2018-07-16 07:56 | CARD ---
APPROVED REPORT Date of service: 06/26/2018 Protocol: ROMI Test Type: TREADMILL TEST Attending Physician: Dr. CHEEMA Technologist: EDUARDO Test Indications: CP Medical History: CP Target HR: 155 bpm Resting ECG: normal Resting Heart Rate: 67 bpm Resting Blood Pressure: 128/80mmHg submaximum (85%): 132 bpm TEST SUMMARY [id number]. EXERCISESTAGE [id number]/.0. EXERCISESTAGE [id number]. [id number]. POST EXERCISE Reason for Termination: Fatigue Target HR: NoMax HR: 130 bpm84% of Maximum Predicted HR: 155 bpm Exercise duration: 2 Stage03:32 min:secExercise capacity: 5.8METs Max Blood Pressure: 140/80mmHg Blood Pressure response to exercise: normal resting BP - appropriate response Heart Rate response to exercise: appropriate Chest Pain: NononeAngina index: 0 Arrhythmia: Nonone ST Change: YesDepression upslopingDeviation: 0 mm INTERPRETATION Stress EKG Conclusion: [address] segment depression in lateral leads Severely decreased exercise tolerance further evaluation with cardiac catheterization recommended
--- NOTE | 2018-08-04 06:29 | CARDCATH ---
PROCEDURE DATE: 06/30/2018 INDICATIONS: Ms. Lira is a 68-year-old female, history of smoking presenting with chest pain underwent a stress test which was equivocal due to significant fatigue therefore she was brought to the [facility] for further evaluation and treatment. PROCEDURE PERFORMED: Left heart catheterization with selective left and right coronary angiogram. Left ventriculogram, a 6-Swedish left radial arterial access, wristband for hemostasis. ANGIOGRAPHIC FINDINGS: Left main is a large-sized vessel, bifurcates into left anterior descending and left circumflex coronary artery. Left anterior descending is a large-sized vessel, left main is free of any obstructive disease given off three small diagonal branches, left side large sized vessel in the AV groove, given off the large obtuse marginal one branch and then medium size obtuse marginal 2 branch free of any obstructive disease. RCA is a large sized vessel, free of any obstructive disease. Right dominant circulation. Left ventricular ejection fraction is 60% to 65%. IMPRESSION: Mild nonobstructive coronary artery disease. Normal ejection fraction. RECOMMENDATIONS: Aggressive medical management and risk factor modification. The patient can be discharged home on guideline-directed therapy for nonobstructive CAD. Cale Broussard MD
== END 2018-07-03 17:49 | disposition home or self-care (01) | DRG 287 ==
LOC: C.ER 11:45 → C.6T 18:34 → OBSVTOIN 06-27 16:30
PROVIDERS: ADMIT Internal Medicine Nephrology; ATTEND Internal Medicine Nephrology
PROC: 4A023N7 Measurement of Cardiac Sampling and Pressure, Left Heart, Percutaneous Approach (ICD-10-PCS; principal; 2018-06-30)
PROC: B2111ZZ Fluoroscopy of Multiple Coronary Arteries using Low Osmolar Contrast (ICD-10-PCS; 2018-06-30)
PROC: B2151ZZ Fluoroscopy of Left Heart using Low Osmolar Contrast (ICD-10-PCS; 2018-06-30)
DX: I25.10 Atherosclerotic heart disease of native coronary artery without angina pectoris (principal); J44.0 Chronic obstructive pulmonary disease with (acute) lower respiratory infection; J44.1 Chronic obstructive pulmonary disease with (acute) exacerbation; J20.9 Acute bronchitis, unspecified; R07.89 Other chest pain; F17.200 Nicotine dependence, unspecified, uncomplicated; F32.9 Major depressive disorder, single episode, unspecified; F41.9 Anxiety disorder, unspecified; K59.00 Constipation, unspecified; R63.1 Polydipsia; K21.9 Gastro-esophageal reflux disease without esophagitis

== ENCOUNTER 2018-09-17 06:52 | Day surgery (SDC) | payer MEDICARE, OTHER ==
--- NOTE | 2018-09-17 08:52 | CP.SDSHP ---
Same Day Surgery H & P - History Proposed Procedure: endoscopy Pre-Op Diagnosis: epig pain, reflux - Previous Medical/Surgical History Comments: anxiety, constipation - Allergies Allergies: Allergies No Known Allergies Allergy (Verified 09/17/18 07:21) - Physical Exam Vital Signs: Vital Signs 09/17/18 09/17/18 07:29 07:48 Temperature 98.4 F Pulse Rate 70 70 Respiratory 20 Rate Blood Pressure 119/67 O2 Sat by Pulse 97 Oximetry Mental Status: Alert & Oriented x3 Neuro: WNL Heart: WNL Lungs: WNL GI: WNL - {Optional Preform as Required} Abdomen: WNL - Impression Impression: gastritis, esophagitis Pt. Evaluated Today:Candidate for Anesthesia & Procedure: Yes - Date & Time Date: 09/17/18 Time: 08:35 Short Stay Discharge - Short Stay Discharge Admitting Diagnosis/Reason for Visit: ABDOMINAL PAIN Disposition: HOME/ ROUTINE
[2018-09-17 09:18] VITALS: TEMP 97.5
[2018-09-17 09:46] VITALS: O2SAT 98
[2018-09-17 09:47] VITALS: BP 107/66; PULSE 63; RESP 17
== END 2018-09-17 10:12 | disposition home or self-care (01) ==
LOC: C.ENDO 06:52
PROVIDERS: ATTEND Internal Medicine Gastroenterology
DX: K21.0 Gastro-esophageal reflux disease with esophagitis (principal); R10.84 Generalized abdominal pain; K29.70 Gastritis, unspecified, without bleeding